=== PATIENT | male | born 1960 | race Caucasian/White ===

== ENCOUNTER 2018-01-31 00:28 | Inpatient (IN) | payer OTHER ==
[2018-01-31 01:34] LABS: BASO % 0.9 % (0-2.0); EOS % 0.7 % (0-4.5); HEMATOCRIT 39.2 % (35.4-49); HEMOGLOBIN 13.4 GM/dL (11.7-16.9); MCH 29.8 pg (25.7-33.7); MCHC 34.2 g/dl (32.0-35.9); MEAN CELL VOLUME 87.2 fl (80-96); MEAN PLT VOLUME 7.2 fl (7.5-11.1); MONO % 8.8 % (3.8-10.2); NEUT % 75.6 % (42.8-82.8); PLATELET COUNT 281 K/MM3 (134-434); RDW 15.3 % (11.9-15.9); WHITE BLOOD COUNT 9.2 K/mm3 (4.0-10.0)
[2018-01-31] MEDS ORDERED: SODIUM CHLORIDE 1,000 ML IV ONE ×2 (01:48→07:08)
--- NOTE | 2018-01-31 01:52 | PDOC ---
History of Present Illness - General History Source: Patient Exam Limitations: No Limitations - History of Present Illness Initial Comments: 01/31/18 03:59 The patient is a 57 year old male, with a significant past medical history of bipolar disorder, thyroid disease, hypercholesterolemia, manic depression, who presents to the emergency department via EMS, with mood swings. The patient reports his brother notified EMS as the patient was experiencing worsening agitation earlier today for the pst 2 days. The patient states he has recently been changing his medications in the past month. The patient states he has a maternal history of manic depression. The patient denies any suicidal or homicidal ideations. He denies any recent fevers, chills, headache or dizziness. He denies any recent nausea, vomit, diarrhea or constipation. He denies any recent chest pain or shortness of breath. He denies any recent dysuria, frequency, urgency or hematuria. Allergies: NKA <Ric Small - Last Filed: 01/31/18 05:09> <Angel Patino - Last Filed: 01/31/18 07:53> - General Chief Complaint: Altered Mental Status Stated Complaint: SYNCOPE Time Seen by Provider: 01/31/18 00:53 Past History <Ric Small - Last Filed: 01/31/18 05:09> - Suicide/Smoking/Psychosocial Hx Smoking History: Unknown if ever smoked Have you smoked in the past 12 months: No Information on smoking cessation initiated: No Hx Alcohol Use: No Drug/Substance Use Hx: No <Angel Patino - Last Filed: 01/31/18 07:53> - Past Medical History Allergies/Adverse Reactions: Allergies Allergy/AdvReac Type Severity Reaction Status Date / Time No Known Allergies Allergy Verified 01/31/18 02:38 Home Medications: Ambulatory Orders Unobtainable [Unobtainable] 01/31/18 Review of Systems - Review of Systems Able to Perform ROS?: No Comments:: 01/31/18 03:59 Lmited due to mental status <Ric Small - Last Filed: 01/31/18 05:09> *Physical Exam - Vital Signs Last Vital Signs Temp Pulse Resp BP Pulse Ox 98.3 F 113 H 20 158/85 99 01/31/18 00:30 01/31/18 00:30 01/31/18 00:30 01/31/18 00:30 01/31/18 00:30 - Physical Exam Comments: 01/31/18 03:59 GENERAL: The patient is awake, alert, oriented x 2, Nontoxic - in no acute distress. HEAD: Normocephalic, atraumatic. EYES: extraocular movements intact, sclera anicteric, conjunctiva clear. ENT: Normal voice, Moist mucous membranes. NECK: Normal range of motion, supple LUNGS: Breath sounds equal, clear to auscultation bilaterally. No wheezes, no rhonchi, no rales. HEART: Regular rate and rhythm, normal S1 and S2 without murmur, rub or gallop. ABDOMEN: Soft, nontender, normoactive bowel sounds. No guarding, no rebound. . No CVA tenderness EXTREMITIES: Normal range of motion, b/l LE edema with mild erythema b/l NEUROLOGICAL: No facial assymetry, moving all 4 extrmitieis psontaneously and symemtrically PSYCH:pressured speech. agitated SKIN: Warm, Dry, normal turgor, <Ric Small - Last Filed: 01/31/18 05:09> - Vital Signs Last Vital Signs Temp Pulse Resp BP Pulse Ox 98.3 F 113 H 20 158/85 99 01/31/18 00:30 01/31/18 00:30 01/31/18 00:30 01/31/18 00:30 01/31/18 00:30 <Angel Patino - Last Filed: 01/31/18 07:53> Heart Score/ECG Review - ECG Impressions Comment:: 01/31/18 01:51 Twelve-lead EKG was performed and reviewed by me. There is normal sinus rhythm with a rate of 113 ekleft axis devation rbbb no prior ekgs for comparison <Angel Patino - Last Filed: 01/31/18 07:53> ED Treatment Course - LABORATORY CBC & Chemistry Diagram: 01/31/18 01:26 01/31/18 01:26 - ADDITIONAL ORDERS Additional order review: Laboratory Results 01/31/18 01/31/18 01/31/18 02:50 02:50 01:26 Sodium Potassium Chloride Carbon Dioxide Anion Gap BUN Creatinine Creat Clearance w eGFR Random Glucose Calcium Total Bilirubin AST ALT Alkaline Phosphatase Total Protein Albumin Urine Color Ltyellow Urine Appearance Clear Urine pH 7.0 Ur Specific [place] 1.014 Urine Protein Negative Urine Glucose (UA) Negative Urine Ketones Negative Urine Blood Negative Urine Nitrite Negative Urine Bilirubin Negative Urine Urobilinogen Negative Ur Leukocyte Esterase Negative Salicylates <4.0 Opiates Screen Negative Methadone Screen Negative Acetaminophen <2.0 Barbiturate Screen Negative Phencyclidine Screen Negative Ur Amphetamines Screen Negative MDMA (Ecstasy) Screen Negative Benzodiazepines Screen Negative Cocaine Screen Negative U Marijuana (THC) Screen Negative 01/31/18 01:26 Sodium 139 Potassium 3.8 Chloride 101 Carbon Dioxide 26 Anion Gap 12 BUN 26 H Creatinine 1.0 Creat Clearance w eGFR > 60 Random Glucose 120 H Calcium 9.3 Total Bilirubin 0.3 AST 33 ALT 23 Alkaline Phosphatase 58 Total Protein 7.8 Albumin 4.0 Urine Color Urine Appearance Urine pH Ur Specific [place] Urine Protein Urine Glucose (UA) Urine Ketones Urine Blood Urine Nitrite Urine Bilirubin Urine Urobilinogen Ur Leukocyte Esterase Salicylates Opiates Screen Methadone Screen Acetaminophen Barbiturate Screen Phencyclidine Screen Ur Amphetamines Screen MDMA (Ecstasy) Screen Benzodiazepines Screen Cocaine Screen U Marijuana (THC) Screen 01/31/18 01:26 RBC 4.50 MCV 87.2 MCHC 34.2 RDW 15.3 MPV 7.2 L Neutrophils % 75.6 Lymphocytes % 14.0 Monocytes % 8.8 Eosinophils % 0.7 Basophils % 0.9 - RADIOLOGY Radiograph Interpretation: 01/31/18 05:09 EXAM: HEAD CT WITHOUT CONTRAST HISTORY: Seizure COMPARISON: None. FINDINGS: Brain parenchyma is normal in attenuation with no mass or hematoma. There is no midline shift. Kaufman and white matter differentiation is normal. Ventricles are normal. Sulci and extra-axial CSF spaces are normal. Intracranial vascular structures are normal in attenuation. There is no calvarial fracture. Paranasal sinuses are normally aerated. IMPRESSION: Normal head Reported by Niranjan Garza MD - Medications Given in the ED: ED Medications Discontinued Medications Generic Name Dose Route Start Last Admin Trade Name Freq PRN Reason Stop Dose Admin Sodium Chloride 1,000 mls @ 1,000 mls/hr 01/31/18 01:48 01/31/18 03:16 Normal Saline - IV 01/31/18 02:47 Not Given .Q1H ONE <Ric Small - Last Filed: 01/31/18 05:09> - LABORATORY CBC & Chemistry Diagram: 01/31/18 01:26 01/31/18 01:26 - ADDITIONAL ORDERS Additional order review: 01/31/18 01:26 RBC 4.50 MCV 87.2 MCHC 34.2 RDW 15.3 MPV 7.2 L Neutrophils % 75.6 Lymphocytes % 14.0 Monocytes % 8.8 Eosinophils % 0.7 Basophils % 0.9 - RADIOLOGY Radiology Studies Ordered: Category Date Time Status CHEST X-RAY PORTABLE* [RAD] Stat Radiology 01/31/18 00:54 Taken <Angel Patino - Last Filed: 01/31/18 07:53> Medical Decision Making - Medical Decision Making 01/31/18 01:50 pt sent in for evaluation by ?brother? for psych ?bipolar pt rambling, history limited and difficult to obtainhistory from patient brther had called ED and spoken to print shop chief clerk - states he will call us back will talk to brother to get more history will obtain tox workup for now pt noted tachy to 113, will hydrate 01/31/18 02:29 discussed with Israel Pasqualeada (brother ) - [phone] (h), (c, only call after 1pm) Per the brother the patient has been more agitated yesterday and much more today. there was an episode of shaking lasting approx 30 seconds, afterwards he couldnt speak and seemed to have slurred speech. this lasted for a few minutes before resolving. EMS was called. on arrival pt had no noted neuro deficits. suspect possible seizure > todds paralysis pt followed by the ACT Team at [facility]. Pt is on depakote, and was recently on abilify and was being tirated down, had an allergic reaction to cogentin pts PMHs: thyroid disease, cholesterol, ?cardiac disease currently beign worked up as outpatient. 01/31/18 05:29 pt had a apprxo 90 sec tonic clonic seizure followed by post ictal period stopped prior to any meds will give 2mg of ativan pts BGM 130 will admit/observe for further workup/psych consult 01/31/18 07:25 lactic acid eelvated to 8 sp seizure will give fluids - suspect LA due to true seizure 01/31/18 07:[address] mullins agree with admission to tele consults placed for dr. rahman and dr. rogers Case discussed in detail with admitting physician including history, physical exam and ancillary studies. Admitting physician has assumed care for the patient, will follow all pending diagnostics and will complete the evaluation and treatment. CRITICAL CARE DOCUMENTATION: I spent ~35 minutes of Critical Care time, excluding separately billable procedures, involving high complexity decision making to assess, manipulate and support vital system function(s) to treat single or multiple vital organ system failure and/or to prevent further life threatening deterioration of the patient' s condition. <Angel Patino - Last Filed: 01/31/18 07:53> *DC/Admit/Observation/Transfer - Attestations Scribe Attestion: 01/31/18 04:00 Documentation prepared by Ric Small, acting as medical donation professional for Angel Patino MD. <Ric Small - Last Filed: 01/31/18 05:09> - Discharge Dispostion Admit: Yes <Angel Patino - Last Filed: 01/31/18 07:53> Diagnosis at time of Disposition: Seizure, Manic behavior - Discharge Dispostion Condition at time of disposition: Stable
[2018-01-31 02:10] LABS: ANION GAP 12 (8-16); BILIRUBIN,TOTAL 0.3 mg/dL (0.2-1.0); BLOOD UREA NITROGEN 26 mg/dL (7-18); CALCIUM 9.3 mg/dL (8.5-10.1); CHLORIDE 101 mmol/L (98-107); CO2 26 mmol/L (21-32); GLUCOSE,RANDOM 120 mg/dL (74-106); POTASSIUM 3.8 mmol/L (3.5-5.1); SGOT/AST 33 U/L (15-37); SGPT/ALT 23 U/L (12-78); SODIUM 139 mmol/L (136-145); TOT PROT 7.8 g/dl (6.4-8.2)
[2018-01-31 02:11] LABS: ALK PHOS 58 U/L (45-117)
[2018-01-31 02:27] LABS: ACETAMINOPHEN <2.0 ug/mL; SALICYLATE <4.0 mg/dL
[2018-01-31 03:22] LABS: URINE APPEARANCE CLEAR; URINE BILIRUBIN NEGATIVE (<2.0 mg/dL); URINE BLOOD NEGATIVE (NEGATIVE); URINE COLOR LTYELLOW; URINE GLUCOSE (UA) NEGATIVE (NEGATIVE); URINE KETONE NEGATIVE (NEGATIVE); URINE LEUK ESTERASE NEGATIVE (NEGATIVE); URINE NITRITE NEGATIVE (NEGATIVE); URINE PROTEIN NEGATIVE (NEGATIVE); URINE UROBILINOGEN NEGATIVE mg/dL (0.2-1.0)
[2018-01-31 03:26] LABS: COCAINE, UR NEGATIVE ng/ml (CUTOFF=300); METHADONE, UR NEGATIVE ng/ml (CUTOFF=300); OPIATES, URI NEGATIVE ng/ml (CUTOFF=300); PHENCYCLIDINE,URINE NEGATIVE ng/ml (CUTOFF=25); URINE AMPHETAMINES NEGATIVE ng/ml (CUTOFF=500); URINE BARBITURATES NEGATIVE ng/ml (CUTOFF=200); URINE BENZODIAZEPINES NEGATIVE ng/ml (CUTOFF=200)
[2018-01-31] MEDS ORDERED: LORazepam 2 MG/ML SDV VIAL ONE (05:27)
[2018-01-31] MEDS ORDERED: HEMOQUE CONTROL SOLUTION ONE (05:35)
[2018-01-31] MEDS ORDERED: OXcarbazepine 300 MG TABLET (UD) PO SCH (10:00)
--- NOTE | 2018-01-31 10:59 | HP ---
CHIEF COMPLAINT: confusion and facial droop PCP: Dr. Moose Mora HISTORY OF PRESENT ILLNESS: 57 y/o M w/PMH of bipolar d/o, hypothyroidism, asthma, unknown cardiac issue presents to the ER after being witnessed by brother (Brooks) to have 1-2 min of shaking with confusion afterwards and facial drooping afterwards. Hx obtained from brother over phone as pt is currently tangentially talking during interview. According to brother over the last 2-3 days pt has been becoming more agitated and more manic. Last night pt was on phone and during call pt was extremely agitated and suddenly started shaking for 1-2 min. Pt had confusion afterwards and facial droop and slurred speech. Brother called EMS. Upon arrival to ER pt was noted not to have any focal neuro deficits. Pt has had this happen once approx 1-2 years ago while he was hospitalized at [facility]. In ER pt again had 90 sec of tonic clonic seizures (lactic acid noted to be 8.8 after seizure to confirm) and was given 2mg IV ativan with improvement in symptoms. According to brother pt is compliant with his meds and at baseline when his janae is controlled he is "able to function normally". According to brother pt had not been diagnosed with seizures in the past and depakote he takes is for mood stabilization. According to brother, pt was in the process of getting cardiac work up done but was unsure of reason or what had been done. Pt sees ACT team at [facility] for bipolar management. ER course was notable for: (1) EKG, Head CT, ativan 2mg IV (2) (3) Recent Travel: unable to assess due to tangential speech PAST MEDICAL HISTORY: bipolar d/o, hypothyroidism, asthma, unknown cardiac issue. PAST SURGICAL HISTORY: unable to assess due to tangential speech Social History: Smoking:unable to assess due to tangential speech Alcohol:unable to assess due to tangential speech Drugs: unable to assess due to tangential speech Family History:unable to assess due to tangential speech Allergies benztropine [From Cogentin] Allergy (Severe, Verified 01/31/18 09:41) anaphylaxis HOME MEDICATIONS: Home Medications Medication Instructions Recorded Unobtainable [Unobtainable] 01/31/18 REVIEW OF SYSTEMS unable to assess due to tangential speech PHYSICAL EXAMINATION Vital Signs - 24 hr 01/31/18 01/31/18 00:30 08:27 Temperature 98.3 F Pulse Rate 113 H Pulse Rate [ 98 H Left] Respiratory 20 18 Rate Blood Pressure 158/85 Blood Pressure 173/98 [Arm] O2 Sat by Pulse 99 99 Oximetry (%) GENERAL: Awake, alert, and oriented. Unable to asses time and place due to tangential speech. Pt not following instructions for physical exam. EYES: Pt not following instructions for physical exam. LUNGS: Unable to assess breath sounds as pt was talking during exam. HEART: Unable to assess heart sounds as pt was talking during exam. ABDOMEN: Soft, obese. LOWER EXTREMITIES: 2+ pulses, warm, well-perfused. 2+ pitting edema. NEUROLOGICAL: Normal gait. PSYCHIATRIC: Not cooperative with physical exam and tangentially speaking. SKIN: Warm, dry Laboratory Results - last 24 hr 01/31/18 01/31/18 01/31/18 01:26 01:26 01:26 WBC 9.2 RBC 4.50 Hgb 13.4 Hct 39.2 MCV 87.2 MCH 29.8 MCHC 34.2 RDW 15.3 Plt Count 281 MPV 7.2 L Neutrophils % 75.6 Lymphocytes % 14.0 Monocytes % 8.8 Eosinophils % 0.7 Basophils % 0.9 Sodium 139 Potassium 3.8 Chloride 101 Carbon Dioxide 26 Anion Gap 12 BUN 26 H Creatinine 1.0 Creat Clearance w eGFR > 60 POC Glucometer Random Glucose 120 H Lactic Acid Calcium 9.3 Total Bilirubin 0.3 AST 33 ALT 23 Alkaline Phosphatase 58 Ammonia Total Protein 7.8 Albumin 4.0 Urine Color Urine Appearance Urine pH Ur Specific [place] Urine Protein Urine Glucose (UA) Urine Ketones Urine Blood Urine Nitrite Urine Bilirubin Urine Urobilinogen Ur Leukocyte Esterase Salicylates <4.0 Opiates Screen Methadone Screen Acetaminophen <2.0 Barbiturate Screen Phencyclidine Screen Ur Amphetamines Screen MDMA (Ecstasy) Screen Benzodiazepines Screen Cocaine Screen U Marijuana (THC) Screen 01/31/18 01/31/18 01/31/18 02:50 02:50 03:40 WBC RBC Hgb Hct MCV MCH MCHC RDW Plt Count MPV Neutrophils % Lymphocytes % Monocytes % Eosinophils % Basophils % Sodium Potassium Chloride Carbon Dioxide Anion Gap BUN Creatinine Creat Clearance w eGFR POC Glucometer Random Glucose Lactic Acid 8.8 H* Calcium Total Bilirubin AST ALT Alkaline Phosphatase Ammonia Total Protein Albumin Urine Color Ltyellow Urine Appearance Clear Urine pH 7.0 Ur Specific [place] 1.014 Urine Protein Negative Urine Glucose (UA) Negative Urine Ketones Negative Urine Blood Negative Urine Nitrite Negative Urine Bilirubin Negative Urine Urobilinogen Negative Ur Leukocyte Esterase Negative Salicylates Opiates Screen Negative Methadone Screen Negative Acetaminophen Barbiturate Screen Negative Phencyclidine Screen Negative Ur Amphetamines Screen Negative MDMA (Ecstasy) Screen Negative Benzodiazepines Screen Negative Cocaine Screen Negative U Marijuana (THC) Screen Negative 01/31/18 01/31/18 01/31/18 05:41 09:15 09:53 WBC RBC Hgb Hct MCV MCH MCHC RDW Plt Count MPV Neutrophils % Lymphocytes % Monocytes % Eosinophils % Basophils % Sodium Potassium Chloride Carbon Dioxide Anion Gap BUN Creatinine Creat Clearance w eGFR POC Glucometer [phone] Random Glucose Lactic Acid 1.0 Calcium Total Bilirubin AST ALT Alkaline Phosphatase Ammonia 20.34 Total Protein Albumin Urine Color Urine Appearance Urine pH Ur Specific [place] Urine Protein Urine Glucose (UA) Urine Ketones Urine Blood Urine Nitrite Urine Bilirubin Urine Urobilinogen Ur Leukocyte Esterase Salicylates Opiates Screen Methadone Screen Acetaminophen Barbiturate Screen Phencyclidine Screen Ur Amphetamines Screen MDMA (Ecstasy) Screen Benzodiazepines Screen Cocaine Screen U Marijuana (THC) Screen Imaging: CXR: No acute pathology Head CT: no acute pathology EKG: SR @ 113, LAD, RBBB -no previous EKG here ASSESSMENT/PLAN: 57 y/o M w/PMH of bipolar d/o, hypothyroidism, asthma, unknown cardiac issue admitted for new onset seizures. -Seizure d/o -check ammonia levels -low depakote levels -spoke with Dr. Cordova and will load with IV valproic acid 1g once and c/w depakote 500 qid -LA 8.8 after seizure in ER -will put on NS @ 100 ml/hr -ativan 2 mg IV q6h prn -Neuro consult -EEG -seizure precautions -neuro checks -elevated TSH, f/u free T4 and total T3 in AM -Bipolar d/o w/active janae -c/w depakote po 500 mg qid -psych consult -1:1 observation -pt also on aricept 10 mg qd, will restart -Hypothyroidism -check TSH -c/w synthroid -LE edema -hold lasix -Asthma -not currently in exacerbation -duo-nebs q4h prn -DVT ppx -heparin 5000 units sq q8h -FEN -NS @ 100 ml/hr -Monitor electrolytes -Sodium controlled diet -Dispo: Tele Visit type - Emergency Visit Emergency Visit: Yes ED Registration Date: 01/31/18 Care time: The patient presented to the Emergency Department on the above date and was hospitalized for further evaluation of their emergent condition. - New Patient This patient is new to me today: Yes Date on this admission: 01/31/18 - Critical Care Critical Care patient: No Hospitalist Screening - Colonoscopy Questionnaire Colonoscopy Questionnaire: Colonoscopy Questionnaire - Patient: 50 - 75 years old and never had a screening colonoscopy: Unknown History of colon or rectal polyps, or CA: Unknown History of IBD, Crohn's disease or UC: Unknown History of abdominal radiation therapy as a child: Unknown - Relative: 1 with colon or rectal CA, or polyps at age 60 or younger: Unknown Colon or rectal CA diagnosed at age 45 or younger: Unknown Multiple relatives with colon or rectal CA: Unknown - Outcome: Screening Result: Negative Screen
[2018-01-31] MEDS ORDERED: ALBUTEROL SO4 2.5/IPRATROPIUM 0.5 INH SOL 3 ML VIAL.NEB. NEB PRN (11:13)
[2018-01-31] MEDS ORDERED: FUROSEMIDE 40 MG TABLET (FP) PO SCH (11:15)
[2018-01-31] MEDS ORDERED: FUROSEMIDE 40 MG/4 ML INJECTABLE VIAL ONE (12:11)
--- NOTE | 2018-01-31 13:12 | PN ---
Teaching Attending Note Name of Resident: Larry Lynch ATTENDING PHYSICIAN STATEMENT I saw and evaluated the patient. I reviewed the resident's note and discussed the case with the resident. I agree with the resident's findings and plan as documented with exceptions mentioned below. SUBJECTIVE: 57 yom with pMHx of bipolar disorder, Hypothyroidism, Asthma, ?Cardiac history vs on lasix for LE edema, with reportedly manic episode over last 2-3 days. Patient was noted with witnessed GTC seizure followed by transient right facial droop/confusion, brought to ED, when was asymptomatic. Had another episode of GTC in the ED followed by confusion that resolved with ativan in the ED. Currently patient tangential in his conversation and unable to provide clear history or ROS. Denies any pain or complaints. 12 point ROS limited given above. Reported seizure episode 1-2 years ago none since. OBJECTIVE: Vital Signs Period Temp Pulse Resp BP Sys/Machado Pulse Ox Last 24 Hr 98.3 F-98.3 F 98-113 14-20 143-173/85-106 98-99 Intake & Output 01/28/18 01/29/18 01/30/18 01/31/18 23:59 23:59 23:59 23:59 Weight 220 lb GENERAL: Awake, alert, and fully oriented, in no acute distress, ambulating, tangential HEAD: Normal with no signs of trauma. EYES: Pupils equal, round and reactive to light, extraocular movements intact, sclera anicteric, conjunctiva clear. No lid lag. EARS, NOSE, THROAT: Ears normal, nares patent, oropharynx clear without exudates. Moist mucous membranes. NECK: Normal range of motion, supple LUNGS: Breath sounds equal, clear to auscultation bilaterally. No wheezes, and no crackles. No accessory muscle use. HEART: Regular rate and rhythm, normal S1 and S2 ABDOMEN: Soft, nontender, not distended, normoactive bowel sounds, no guarding, no rebound, no masses. MUSCULOSKELETAL: Normal range of motion at all joints. No bony deformities or tenderness. No CVA tenderness. UPPER EXTREMITIES: 2+ pulses, warm, well-perfused. No cyanosis. No clubbing. No peripheral edema. LOWER EXTREMITIES: 2+ pulses, warm, well-perfused. No calf tenderness. No peripheral edema. NEUROLOGICAL: Cranial nerves II-XIIgrossly intact, facial symmetry, tongue midline, limited co-operation as talking continuously. PSYCHIATRIC: tangential, continuous conversation with no clear relevance SKIN: Warm, dry, normal turgor, no rashes or lesions noted, normal capillary refill. Home Medication List Medication Instructions Recorded Confirmed Type Albuterol Sulfate [Proair Hfa] 01/31/18 History Divalproex *ER* [Depakote *ER* -] 500 mg PO QID 01/31/18 01/31/18 History Donepezil HCl [Aricept] 10 mg PO 01/31/18 History Furosemide [Lasix -] 40 mg PO DAILY 01/31/18 01/31/18 History Levothyroxine [Synthroid -] 100 mcg PO DAILY 01/31/18 01/31/18 History Active Medications Generic Name Dose Route Start Last Admin Trade Name Freq PRN Reason Stop Dose Admin Albuterol/Ipratropium 1 amp 01/31/18 11:13 Duoneb - NEB Q6H PRN SHORTNESS OF BREATH Divalproex Sodium 500 mg 01/31/18 14:00 Depakote *Er* - PO QID SHELL Donepezil HCl 10 mg 02/01/18 10:00 Aricept - PO DAILY SHELL Furosemide 40 mg 01/31/18 11:15 01/31/18 12:13 Lasix - PO 40 mg DAILY SHELL Administration Heparin Sodium (Porcine) 5,000 unit 01/31/18 18:00 Heparin - SQ Q8H-IV SHELL Sodium Chloride 1,000 mls @ 100 mls/hr 01/31/18 13:15 Normal Saline - IV ASDIR SHELL Levothyroxine Sodium 100 mcg 02/01/18 07:00 Synthroid - PO DAILY@0700 SHELL Lorazepam 2 mg 01/31/18 13:07 Ativan Injection - IVPUSH Q6H PRN AGITATION Oxcarbazepine 300 mg 01/31/18 10:00 01/31/18 12:22 Trileptal - PO 300 mg BID SHELL Administration Laboratory Results - last 24 hr 01/31/18 01/31/18 01/31/18 01:26 01:26 01:26 WBC 9.2 RBC 4.50 Hgb 13.4 Hct 39.2 MCV 87.2 MCH 29.8 MCHC 34.2 RDW 15.3 Plt Count 281 MPV 7.2 L Neutrophils % 75.6 Lymphocytes % 14.0 Monocytes % 8.8 Eosinophils % 0.7 Basophils % 0.9 Sodium 139 Potassium 3.8 Chloride 101 Carbon Dioxide 26 Anion Gap 12 BUN 26 H Creatinine 1.0 Creat Clearance w eGFR > 60 POC Glucometer Random Glucose 120 H Lactic Acid Calcium 9.3 Total Bilirubin 0.3 AST 33 ALT 23 Alkaline Phosphatase 58 Ammonia Total Protein 7.8 Albumin 4.0 TSH 5.40 H Urine Color Urine Appearance Urine pH Ur Specific [place] Urine Protein Urine Glucose (UA) Urine Ketones Urine Blood Urine Nitrite Urine Bilirubin Urine Urobilinogen Ur Leukocyte Esterase Salicylates <4.0 Opiates Screen Methadone Screen Acetaminophen <2.0 Barbiturate Screen Valproic Acid Phencyclidine Screen Ur Amphetamines Screen MDMA (Ecstasy) Screen Benzodiazepines Screen Cocaine Screen U Marijuana (THC) Screen 01/31/18 01/31/18 01/31/18 02:50 02:50 03:40 WBC RBC Hgb Hct MCV MCH MCHC RDW Plt Count MPV Neutrophils % Lymphocytes % Monocytes % Eosinophils % Basophils % Sodium Potassium Chloride Carbon Dioxide Anion Gap BUN Creatinine Creat Clearance w eGFR POC Glucometer Random Glucose Lactic Acid 8.8 H* Calcium Total Bilirubin AST ALT Alkaline Phosphatase Ammonia Total Protein Albumin TSH Urine Color Ltyellow Urine Appearance Clear Urine pH 7.0 Ur Specific [place] 1.014 Urine Protein Negative Urine Glucose (UA) Negative Urine Ketones Negative Urine Blood Negative Urine Nitrite Negative Urine Bilirubin Negative Urine Urobilinogen Negative Ur Leukocyte Esterase Negative Salicylates Opiates Screen Negative Methadone Screen Negative Acetaminophen Barbiturate Screen Negative Valproic Acid Phencyclidine Screen Negative Ur Amphetamines Screen Negative MDMA (Ecstasy) Screen Negative Benzodiazepines Screen Negative Cocaine Screen Negative U Marijuana (THC) Screen Negative 01/31/18 01/31/18 01/31/18 05:41 09:00 09:15 WBC RBC Hgb Hct MCV MCH MCHC RDW Plt Count MPV Neutrophils % Lymphocytes % Monocytes % Eosinophils % Basophils % Sodium Potassium Chloride Carbon Dioxide Anion Gap BUN Creatinine Creat Clearance w eGFR POC Glucometer [phone] Random Glucose Lactic Acid 1.0 Calcium Total Bilirubin AST ALT Alkaline Phosphatase Ammonia Total Protein Albumin TSH Cancelled Urine Color Urine Appearance Urine pH Ur Specific [place] Urine Protein Urine Glucose (UA) Urine Ketones Urine Blood Urine Nitrite Urine Bilirubin Urine Urobilinogen Ur Leukocyte Esterase Salicylates Opiates Screen Methadone Screen Acetaminophen Barbiturate Screen Valproic Acid Phencyclidine Screen Ur Amphetamines Screen MDMA (Ecstasy) Screen Benzodiazepines Screen Cocaine Screen U Marijuana (THC) Screen 01/31/18 01/31/18 09:53 09:53 WBC RBC Hgb Hct MCV MCH MCHC RDW Plt Count MPV Neutrophils % Lymphocytes % Monocytes % Eosinophils % Basophils % Sodium Potassium Chloride Carbon Dioxide Anion Gap BUN Creatinine Creat Clearance w eGFR POC Glucometer Random Glucose Lactic Acid Calcium Total Bilirubin AST ALT Alkaline Phosphatase Ammonia 20.34 Total Protein Albumin TSH Urine Color Urine Appearance Urine pH Ur Specific [place] Urine Protein Urine Glucose (UA) Urine Ketones Urine Blood Urine Nitrite Urine Bilirubin Urine Urobilinogen Ur Leukocyte Esterase Salicylates Opiates Screen Methadone Screen Acetaminophen Barbiturate Screen Valproic Acid 20.983 L Phencyclidine Screen Ur Amphetamines Screen MDMA (Ecstasy) Screen Benzodiazepines Screen Cocaine Screen U Marijuana (THC) Screen CT brain prelim results neg for acute concerns. EKG sinus tach 113, LAD, RBBB (no prior for comparison) ASSESSMENT AND PLAN: 57 yom with PMHx of bipolar disorder, hypothyroidism,asthma, ?Cardiac history vs chronic LE edema, admitted with acute janae and likely GTC x 2 -Acute janae, bipolar disorder -Likely witnessed GTC x 2 -Lactic acidosis from seizure, resolved -Hypothyroidism -Asthma -Chronic LE edema, vs ?Cardiac disease Plan: Neurology input appreciated, valproate loading,resume home dose, level subtherapeutic. Start seroquel. Seizure precautions, ativan prn 1:1 constant observation. Psych consult. Check free t4 and total T3 hold lasix, iVF x 24 hours, reassess tomorrow Elevated TSH, low depakote levels raise suspicion for non compliance, ?from acute janae. COntinue current dose of levothyroxine for now. DVTPPX low risk total admit time spent 55 min.
--- NOTE | 2018-01-31 13:49 | CON.NEURO ---
Consult Consult Specialty:: NEUROLOGY-VERONIKA [facility] - History of Present Illness Chief Complaint: Seizure History of Present Illness: 57 y/o M w/PMH of bipolar d/o, hypothyroidism, asthma, unknown cardiac issue presents to the ER after being witnessed by brother (Brooks) to have 1-2 min of shaking with confusion afterwards and facial drooping afterwards. Hx obtained from brother over phone as pt is currently tangentially talking during interview. According to brother over the last 2-3 days pt has been becoming more agitated and more manic. Last night pt was on phone and during call pt was extremely agitated and suddenly started shaking for 1-2 min. Pt had confusion afterwards and facial droop and slurred speech. Brother called EMS. Upon arrival to ER pt was noted not to have any focal neuro deficits. Pt has had this happen once approx 1-2 years ago while he was hospitalized at [facility]. In ER pt again had 90 sec of tonic clonic seizures (lactic acid noted to be 8.8 after seizure to confirm) and was given 2mg IV ativan with improvement in symptoms. According to brother pt is compliant with his meds and at baseline when his janae is controlled he is "able to function normally". According to brother pt had not been diagnosed with seizures in the past and depakote he takes is for mood stabilization. According to brother, pt was in the process of getting cardiac work up done but was unsure of reason or what had been done. Pt sees ACT team at [facility] for bipolar management. -Pt. reports he has been compliant with Depakote, that his first seizure was in the and last one was 2 years ago, event he was admitted with last night he reports began with difficuty speaking followed by LOC(not clear for how long , in ER had another event.) ER course was notable for: (1) EKG, Head CT, ativan 2mg IV (2) (3) Recent Travel: unable to assess due to tangential speech PAST MEDICAL HISTORY: bipolar d/o, hypothyroidism, asthma, unknown cardiac issue. - Alcohol/Substance Use Hx Alcohol Use: No - Smoking History Smoking history: Unknown if ever smoked Have you smoked in the past 12 months: No Home Medications - Allergies Allergies/Adverse Reactions: Allergies Allergy/AdvReac Type Severity Reaction Status Date / Time benztropine [From Cogentin] Allergy Severe Verified 01/31/18 09:41 - Home Medications Home Medications: Ambulatory Orders Albuterol Sulfate [Proair Hfa] 01/31/18 Divalproex *ER* [Depakote *ER* -] 500 mg PO QID 01/31/18 Donepezil HCl [Aricept] 10 mg PO 01/31/18 Furosemide [Lasix -] 40 mg PO DAILY 01/31/18 Levothyroxine [Synthroid -] 100 mcg PO DAILY 01/31/18 Physical Exam-Neuro Vital Signs: Vital Signs Temperature 98.3 F 01/31/18 12:55 Pulse Rate 107 H 01/31/18 12:55 Respiratory Rate 14 01/31/18 12:55 Blood Pressure 143/106 01/31/18 12:55 O2 Sat by Pulse Oximetry (%) 98 01/31/18 12:55 Labs: CBC, BMP 01/31/18 01:26 01/31/18 01:26 - Neuro Exam Level Of Consciousness: Yes: Alert, Oriented to Person, Oriented to Place Dominant Hand: Right Mini Mental Exam: + logorrhea+fight of ideas, inattentveness/unable to comply with formal ms exam due to maniac symptoms. Cranial Nerves II-XII Intact: No (slightly diminished right nlf(old)) DTR's: 2+ Left Bicep, 2+ Right Bicep, 2+ Left Tricep, 2+ Right Tricep, 2+ Left Brachioradialis, 4+ Left Achilles (ankles not tested due to LE tenderness) Babinski: Absent Motor Strength: 5/5: Left Arm, Right Arm, Left Leg, Right Leg Gait: Deferred (Bilat LE edema and redness?? cellulitis) Imaging - Results Cat Scan: Image Reviewed (Appears without acute abn, bifrontal atrophy) Assessment/Plan Pt. with bipolar d/o, now with what apears to be sz.x 2, per description appear to be partial sz. with secondary gen. He is maniac upon examination with an old right diminished NLF. VPA level 20.93, he insists he has been compliant with Depakote for janae. On no other antimaiac agent, janae and seizures lkely due to low VPA levels. Suggest: 1) LFTs, NH3 level, EEG when possible. MRI brain?? mesial temporal atrophy(will give pointers to etiology of seizures). 2) Depacon 1000mg i/v x1 now to treat both janae and prophylax against sz. 3) Cont Depakote 500mg q6hrs 4) Seroquel 100mg bid(first dose now)-to treat acute janae. Thank you, Remedios Cordova MD
[2018-01-31] MEDS ORDERED: DIVALPROEX NA *ER* EXTEND REL 250 MG TABLET.SA PO SCH (14:00)
[2018-01-31 14:14] VITALS: BMI 35.1
[2018-01-31] MEDS ORDERED: VALPROATE SODIUM 500 MG/5 ML VIAL IVPB ONE (14:30)
[2018-01-31] MEDS: SODIUM CHLORIDE 1,000 ML IV SCH (15:58)
[2018-01-31] MEDS: DIVALPROEX NA *ER* EXTEND REL 500 MG TABLET.SA (FP) PO SCH ×2 (17:36→21:47)
--- NOTE | 2018-01-31 17:51 | EKG ---
Test Reason : Blood Pressure : / mmHG Vent. Rate : 113 BPM Atrial Rate : 113 BPM P-R Int : 154 ms QRS Dur : 132 ms QT Int : 356 ms P-R-T Axes : 063 -32 048 degrees QTc Int : 488 ms SINUS TACHYCARDIA WITH FUSION COMPLEXES LEFT AXIS DEVIATION RIGHT BUNDLE BRANCH BLOCK ABNORMAL ECG NO PREVIOUS ECGS AVAILABLE Confirmed by MD EDMAR, LESLIE ([id number]) on 01/31/2018 5:50:58 PM Referred By: Confirmed By:LESLIE HYATT MD
[2018-01-31] MEDS: QUEtiapine FUMARATE 100 MG TABLET (FP) PO SCH (21:47)
[2018-01-31] MEDS: HEPARIN NA (PORCINE) 5,000 UNITS/ML 1ML VIAL SQ SCH (21:47)
[2018-02-01] MEDS: DIVALPROEX NA *ER* EXTEND REL 500 MG TABLET.SA (FP) PO SCH ×6 (00:38→23:47)
[2018-02-01] MEDS: SODIUM CHLORIDE 1,000 ML IV SCH ×2 (03:05→22:03)
[2018-02-01] MEDS: HEPARIN NA (PORCINE) 5,000 UNITS/ML 1ML VIAL SQ SCH ×3 (03:05→17:25)
[2018-02-01] MEDS: LEVOTHYROXINE NA 100 MCG TABLET (FP) PO SCH (06:17)
[2018-02-01] MEDS ORDERED: ACETAMINOPHEN 325 MG TABLET (FP) PO PRN (07:38)
[2018-02-01 08:47] LABS: HEMATOCRIT 36.8 % (35.4-49); HEMOGLOBIN 12.2 GM/dL (11.7-16.9); MCHC 33.2 g/dl (32.0-35.9); MEAN CELL VOLUME 87.2 fl (80-96); PLATELET COUNT 215 K/MM3 (134-434); RBC 4.22 M/mm3 (4.00-5.60); RDW 15.1 % (11.9-15.9); WHITE BLOOD COUNT 5.8 K/mm3 (4.0-10.0)
[2018-02-01 09:07] LABS: CHLORIDE 110 mmol/L (98-107); POTASSIUM 3.8 mmol/L (3.5-5.1); SODIUM 142 mmol/L (136-145)
[2018-02-01] MEDS ORDERED: PT OWN MED DRAWER 7, Y5N ONE (09:13)
[2018-02-01] MEDS: QUEtiapine FUMARATE 100 MG TABLET (FP) PO SCH ×3 (09:20→23:51)
[2018-02-01 09:26] LABS: ALBUMIN 3.1 g/dl (3.4-5.0); ALK PHOS 42 U/L (45-117); ANION GAP 8 (8-16); BILIRUBIN,TOTAL 0.3 mg/dL (0.2-1.0); BLOOD UREA NITROGEN 16 mg/dL (7-18); CO2 24 mmol/L (21-32); CREATININE 0.7 mg/dL (0.7-1.3); GLUCOSE,RANDOM 84 mg/dL (74-106); MAGNESIUM 2.6 mg/dL (1.8-2.4); SGOT/AST 22 U/L (15-37); SGPT/ALT 19 U/L (12-78); TOT PROT 6.1 g/dl (6.4-8.2)
[2018-02-01] MEDS ORDERED: DONEPEZIL HCL 10 MG TABLET (FP) PO SCH (10:00)
--- NOTE | 2018-02-01 11:36 | PN ---
Teaching Attending Note Name of Resident: Ana Maria Fitzgerald SUBJECTIVE: patient seen and examined. still with tangential conversation, asking about his meds, but a little directable today, no complaints. OBJECTIVE: Vital Signs Period Temp Pulse Resp BP Sys/Machado Pulse Ox Last 24 Hr 97.9 F-98.3 F 79-107 14-18 127-153/73-106 98-98 Intake & Output 01/29/18 01/30/18 01/31/18 02/01/18 23:59 23:59 23:59 23:59 Intake Total 300 700 Balance 300 700 Weight 231 lb General: lying in bed in no acute distress Neuro Aa, unable to assess orientation as tangential conversation, facial symmetry, moves all extremities freely, grossly non focal exam Abdomen soft, NT, ND Extremities chronic edema with minimal erythema/petechial changes psych: still with tangential conversations. Home Medication List Medication Instructions Recorded Confirmed Type Albuterol Sulfate [Proair Hfa] 01/31/18 History Divalproex *ER* [Depakote *ER* -] 500 mg PO QID 01/31/18 01/31/18 History Donepezil HCl [Aricept] 10 mg PO 01/31/18 History Furosemide [Lasix -] 40 mg PO DAILY 01/31/18 01/31/18 History Levothyroxine [Synthroid -] 100 mcg PO DAILY 01/31/18 01/31/18 History Active Medications Generic Name Dose Route Start Last Admin Trade Name Freq PRN Reason Stop Dose Admin Acetaminophen 650 mg 02/01/18 07:38 02/01/18 08:46 Tylenol - PO 650 mg Q6H PRN Administration HEADACHE Albuterol/Ipratropium 1 amp 01/31/18 11:13 Duoneb - NEB Q6H PRN SHORTNESS OF BREATH Divalproex Sodium 500 mg 01/31/18 14:00 02/01/18 09:20 Depakote *Er* - PO 500 mg QID SHELL Administration Donepezil HCl 10 mg 02/01/18 10:00 02/01/18 09:21 Aricept - PO 10 mg DAILY SHELL Administration Heparin Sodium (Porcine) 5,000 unit 01/31/18 18:00 02/01/18 09:21 Heparin - SQ 5,000 unit Q8H-IV SHELL Administration Sodium Chloride 1,000 mls @ 100 mls/hr 01/31/18 13:15 02/01/18 03:05 Normal Saline - IV 100 mls/hr ASDIR SHELL Administration Levothyroxine Sodium 100 mcg 02/01/18 07:00 02/01/18 06:17 Synthroid - PO 100 mcg DAILY@0700 SHELL Administration Lorazepam 2 mg 01/31/18 13:07 02/01/18 10:15 Ativan Injection - IVPUSH 2 mg Q6H PRN Administration AGITATION Quetiapine Fumarate 100 mg 01/31/18 22:00 02/01/18 09:29 Seroquel - PO Not Given BID [facility] Laboratory Results - last 24 hr 02/01/18 02/01/18 02/01/18 07:00 07:00 07:00 WBC 5.8 D RBC 4.22 Hgb 12.2 Hct 36.8 MCV 87.2 MCH 29.0 MCHC 33.2 RDW 15.1 Plt Count 215 D MPV 7.0 L Sodium 142 Potassium 3.8 Chloride 110 H Carbon Dioxide 24 Anion Gap 8 BUN 16 D Creatinine 0.7 D Creat Clearance w eGFR > 60 Random Glucose 84 D Calcium 8.0 L Magnesium 2.6 H Total Bilirubin 0.3 AST 22 D ALT 19 Alkaline Phosphatase 42 L D Total Protein 6.1 L D Albumin 3.1 L D Free T4 0.96 Cancelled ASSESSMENT AND PLAN: 57 yom with PMHx of bipolar disorder, hypothyroidism,asthma, ?Cardiac history vs chronic LE edema, admitted with acute janae and likely GTC x 2 -Acute janae, bipolar disorder -Likely witnessed GTC x 2 -Lactic acidosis from seizure, resolved -Hypothyroidism -Asthma -Chronic LE edema, vs ?Cardiac disease Plan: Neurology input appreciated, valproete levels low, s/p loading. Continue home dose. EEG. MRI brain if patient able to co-operate (asking for MRI of 'his whole body' ). Premedicate with Ativan, neuro checks. Continue seroquel. Seizure precautions, ativan prn 1:1 constant observation. Psych consult. Follow up thyroid studies. hold lasix d/c IVF. Elevated TSH, low depakote levels raise suspicion for non compliance, ?from acute janae. COntinue current dose of levothyroxine for now. DVTPPX low risk dispo anticipate d/c to inpatient psych once neurological status stable and w/u non concerning.
[2018-02-01] MEDS ORDERED: LORazepam 2 MG/ML SDV VIAL IVPUSH PRN (17:40)
[2018-02-02] MEDS: QUEtiapine FUMARATE 100 MG TABLET (FP) PO SCH ×4 (00:04→21:57)
[2018-02-02] MEDS: HEPARIN NA (PORCINE) 5,000 UNITS/ML 1ML VIAL SQ SCH ×3 (01:54→18:46)
[2018-02-02] MEDS: LEVOTHYROXINE NA 100 MCG TABLET (FP) PO SCH (06:31)
--- NOTE | 2018-02-02 07:39 | PN ---
Physical Exam: SUBJECTIVE: Patient seen and examined. tangential thought process, grandiose content; no specific medical complaints OBJECTIVE: Vital Signs Period Temp Pulse Resp BP Sys/Machado Pulse Ox Last 24 Hr 97.7 F-98.5 F 86-99 18-20 119-144/75-90 98-98 GENERAL: aaox3, sitting wheel-chair, nad HEENT: sclera anicteric, conjunctiva clear, MMM LUNGS: CTAB HEART: rrr, no m/r/g ABDOMEN: obese, soft, NTND, +bowel sounds LOWER EXTREMITIES: 2+pitting edema, wwp NEUROLOGICAL: Cranial nerves II through XII grossly intact, but not formally tested. PSYCH: disheveled appearance, hyperactive psychomotor activity, tangential speech, grandiose content, no SI or HI CBC, BMP 02/01/18 07:00 02/01/18 07:00 Hepatic Panel Total Bilirubin 0.3 mg/dL (0.2-1.0) 02/01/18 07:00 AST 22 U/L (15-37) D 02/01/18 07:00 ALT 19 U/L (12-78) 02/01/18 07:00 Alkaline Phosphatase 42 U/L (45-117) L D 02/01/18 07:00 Albumin 3.1 g/dl (3.4-5.0) L D 02/01/18 07:00 ASSESSMENT/PLAN: 57yo man with PMH of bipolar disorder, hypothyroidism, asthma, unknown cardiac issue admitted for new onset seizures. #seizure disorder, no further seizures noted since ED, -Neurology consulted, EEG attempted today, but pt uncooperative; case d/w Dr. Cordova no further in-patient w/u -C/w Depakote ER 2000mg HS -Ativan 2mg IV q6H -seizure precautions, neuro checks #acute janae, pt h/o bipolar disorder -Pysch consult -c/w 1:1 -Increased seroquel 150mg BID #hypothyroidism, TSH elevated, FT4 wnl -f/u T3 pending -c/w home 125mg synthroid -f/u TFTs in 4 weeks as OP #LE edema - lasix 20mg PO daily #Asthma -not currently in exacerbation -duo-nebs q4h prn #DVT PPX - Hep SQ TID #FEN: PO intake / lytes wnl / Na controlled diet #DISPO: m/s, can d/c to in-patient psych FULL code Visit type - Emergency Visit Emergency Visit: No - New Patient This patient is new to me today: Yes Date on this admission: 02/02/18 - Critical Care Critical Care patient: No
--- NOTE | 2018-02-02 08:03 | CON.PSY ---
Psychiatry Consult Chief Complaint: 57 yr old male with an extensive history of Bipolar Disorder and other chronic medical conditiond admitted with Seizures. patient had been on many psych meds, He is a very poor historian and has some flight of ideas. Symptoms: reports: Irritability, Grandiosity, Racing Thoughts - Previous Psychiatric Treatment Outpatient: Less than 6 mos ago Inpatient: One prior admission - Previous Substance Abuse Treatment Outpatient: None Inpatient: None - Reason for Previous Treatment Reason for Previous Treatment: Biploar Illness - Current Medications Current Medications: Active Medications Acetaminophen (Tylenol -) 650 mg PO Q6H PRN PRN Reason: HEADACHE Last Admin: 02/01/18 08:46 Dose: 650 mg Albuterol/Ipratropium (Duoneb -) 1 amp NEB Q6H PRN PRN Reason: SHORTNESS OF BREATH Divalproex Sodium (Depakote *Er* -) 2,000 mg PO HS [facility] Last Admin: 02/01/18 23:47 Dose: 2,000 mg Heparin Sodium (Porcine) (Heparin -) 5,000 unit SQ Q8H-IV [facility] Last Admin: 02/02/18 01:54 Dose: 5,000 unit Levothyroxine Sodium (Synthroid -) 100 mcg PO DAILY@0700 [facility] Last Admin: 02/02/18 06:31 Dose: 100 mcg Lorazepam (Ativan Injection -) 2 mg IVPUSH Q6H PRN PRN Reason: AGITATION Quetiapine Fumarate (Seroquel -) 100 mg PO BID [facility] Last Admin: 02/02/18 00:04 Dose: 100 mg - Allergies Allergies: Allergies Allergy/AdvReac Type Severity Reaction Status Date / Time benztropine [From Cogentin] Allergy Severe Verified 01/31/18 09:41 - Current Living Status Usual Living Arrangement: With Significant Other - Current Mental Status Evaluation Appearance: Disheveled Attitude: Cooperative - Affect Affect: Expansive Appropriateness: Not Appropriate - Mood Mood: Euphoric - Speech/Language Expressive: Coherent - Psychomotor Activity Psychomotor Activity: Hyperactive - Thought Process Thought Process: Intact - Thought Content Hallucinations: Absent Type: Grandiose - Self Perception Self Perception: No Impairment - Cognition Attention: Alert Orientation: Time Memory, Immediate Recall: Intact Memory, Short Term: 2/3 Memory, Remote with Promptin/3 - Concentration Serial Sevens Intact: No Simple Calculations Intact: No - Abstraction Proverb Interpretation: Impaired Judgement: Moderately Impaired - Insight Insight: Impaired - Impulse Control Impulse Control: Moderately Impaired - Suicidal Ideation Suicidal Ideation: No - Homicidal Ideation Homicidal Ideation: No Assessment/Plan 1) continue with 1:1 2) may need In patient psych admission after medical stabilization. 3 will follow .
--- NOTE | 2018-02-02 08:45 | PN ---
Teaching Attending Note Name of Resident: Arely Samuels ATTENDING PHYSICIAN STATEMENT I saw and evaluated the patient. I reviewed the resident's note and discussed the case with the resident. I agree with the resident's findings and plan as documented with exceptions mentioned below. SUBJECTIVE: Patient seen and examined. tangential conversation, though with occasional pertinent information. OBJECTIVE: Vital Signs Period Temp Pulse Resp BP Sys/Machado Pulse Ox Last 24 Hr 97.7 F-98.5 F 86-99 18-20 119-144/75-90 98-98 Intake & Output 01/30/18 01/31/18 02/01/18 02/02/18 23:59 23:59 23:59 23:59 Intake Total 300 1400 Balance 300 1400 Weight 231 lb General: sitting in wheelchair in no acute distress Extremities: unchanged edema Home Medication List Medication Instructions Recorded Confirmed Type Albuterol Sulfate [Proair Hfa] 01/31/18 History Divalproex *ER* [Depakote *ER* -] 500 mg PO QID 01/31/18 01/31/18 History Donepezil HCl [Aricept] 10 mg PO 01/31/18 History Furosemide [Lasix -] 40 mg PO DAILY 01/31/18 01/31/18 History Levothyroxine [Synthroid -] 100 mcg PO DAILY 01/31/18 01/31/18 History Active Medications Generic Name Dose Route Start Last Admin Trade Name Freq PRN Reason Stop Dose Admin Acetaminophen 650 mg 02/01/18 07:38 02/01/18 08:46 Tylenol - PO 650 mg Q6H PRN Administration HEADACHE Albuterol/Ipratropium 1 amp 01/31/18 11:13 Duoneb - NEB Q6H PRN SHORTNESS OF BREATH Divalproex Sodium 2,000 mg 02/01/18 22:00 02/01/18 23:47 Depakote *Er* - PO 2,000 mg HS SHELL Administration Heparin Sodium (Porcine) 5,000 unit 01/31/18 18:00 02/02/18 01:54 Heparin - SQ 5,000 unit Q8H-IV SHELL Administration Levothyroxine Sodium 100 mcg 02/01/18 07:00 02/02/18 06:31 Synthroid - PO 100 mcg DAILY@0700 SHELL Administration Lorazepam 2 mg 02/01/18 17:40 Ativan Injection - IVPUSH Q6H PRN AGITATION Quetiapine Fumarate 100 mg 01/31/18 22:00 02/02/18 00:04 Seroquel - PO 100 mg BID SHELL Administration ASSESSMENT AND PLAN: 57 yom with PMHx of bipolar disorder, hypothyroidism,asthma, ?Cardiac history vs chronic LE edema, admitted with acute janae and likely GTC x 2 -Acute janae, bipolar disorder -Likely witnessed GTC x 2 -Lactic acidosis from seizure, resolved -Hypothyroidism -Asthma -Chronic LE edema, vs ?Cardiac disease Plan: Neurology input appreciated, valproete levels low, s/p loading. HOme dose confirmed, depakote SR 1500 mg hs. Patient unable to co-operate with EEG. Unlikely will be able to get MRI given acute janae and lack of co-operation. Neurological exam, non focal and non concerning. Depakote has been increased. Discussed with sandip Sy to d/c to inpatient psych on depakote 2000 mg hs and increased seroquel 150 mg BID. No further inpatient neurological w/u as discussed. Outpatient neurology follow up and depakote level monitoring. Seizure precautions, ativan prn 1:1 constant observation. Psych consult noted. Thyroid studies noted, however, would not change levothyroxine dose as non compliance highly likely given his acute janae. Continue current levothyroxine will repeat levels in 4 weeks. Off IVF, resume lasix at 20 mg daily for LE edema. DVTPPX low risk Dispo No further seizures noted and no further neurological work up at this time. Plan to d/c to inpatient psych when bed available and arranged.
[2018-02-02] MEDS: DIVALPROEX NA *ER* EXTEND REL 500 MG TABLET.SA (FP) PO SCH (21:56)
[2018-02-03] MEDS: HEPARIN NA (PORCINE) 5,000 UNITS/ML 1ML VIAL SQ SCH ×3 (02:50→18:14)
[2018-02-03] MEDS ORDERED: LEVOTHYROXINE NA 125 MCG TABLET (FP) PO SCH (07:00)
--- NOTE | 2018-02-03 07:39 | PN ---
Physical Exam: SUBJECTIVE: Patient seen and examined OBJECTIVE: Vital Signs Period Temp Pulse Resp BP Sys/Machado Pulse Ox Last 24 Hr 97.9 F-98.6 F 93-106 20-20 127-150/75-91 GENERAL: The patient is awake, alert, and fully oriented, in no acute distress. HEAD: Normal with no signs of trauma. EYES: PERRL, extraocular movements intact, sclera anicteric, conjunctiva clear. No ptosis. ENT: Ears normal, nares patent, oropharynx clear without exudates, moist mucous membranes. NECK: Trachea midline, full range of motion, supple. LUNGS: Breath sounds equal, clear to auscultation bilaterally, no wheezes, no crackles, no accessory muscle use. HEART: Regular rate and rhythm, S1, S2 without murmur, rub or gallop. ABDOMEN: Soft, nontender, nondistended, normoactive bowel sounds, no guarding, no rebound, no hepatosplenomegaly, no masses. EXTREMITIES: 2+ pulses, warm, well-perfused, no edema. NEUROLOGICAL: Cranial nerves II through XII grossly intact. Normal speech, gait not observed. PSYCH: Normal mood, normal affect. SKIN: Warm, dry, normal turgor, no rashes or lesions noted Laboratory Results - last 24 hr 02/01/18 07:00 Total T3 89.00 Active Medications Generic Name Dose Route Start Last Admin Trade Name Freq PRN Reason Stop Dose Admin Acetaminophen 650 mg 02/01/18 07:38 02/01/18 08:46 Tylenol - PO 650 mg Q6H PRN Administration HEADACHE Albuterol/Ipratropium 1 amp 01/31/18 11:13 Duoneb - NEB Q6H PRN SHORTNESS OF BREATH Divalproex Sodium 2,000 mg 02/01/18 22:00 02/02/18 21:56 Depakote *Er* - PO 2,000 mg HS SHELL Administration Furosemide 20 mg 02/03/18 10:00 Lasix - PO DAILY SHELL Heparin Sodium (Porcine) 5,000 unit 01/31/18 18:00 02/03/18 02:50 Heparin - SQ 5,000 unit Q8H-IV SHELL Administration Levothyroxine Sodium 125 mcg 02/03/18 07:00 Synthroid - PO DAILY@0700 SHELL Lorazepam 2 mg 02/01/18 17:40 Ativan Injection - IVPUSH Q6H PRN AGITATION Quetiapine Fumarate 150 mg 02/02/18 14:45 02/02/18 21:57 Seroquel - PO 150 mg BID [facility] Administration Active Medications Acetaminophen (Tylenol -) 650 mg PO Q6H PRN PRN Reason: HEADACHE Last Admin: 02/01/18 08:46 Dose: 650 mg Albuterol/Ipratropium (Duoneb -) 1 amp NEB Q6H PRN PRN Reason: SHORTNESS OF BREATH Divalproex Sodium (Depakote *Er* -) 2,000 mg PO HS [facility] Last Admin: 02/02/18 21:56 Dose: 2,000 mg Furosemide (Lasix -) 20 mg PO DAILY [facility] Last Admin: 02/03/18 09:42 Dose: 20 mg Heparin Sodium (Porcine) (Heparin -) 5,000 unit SQ Q8H-IV [facility] Last Admin: 02/03/18 18:14 Dose: Not Given Levothyroxine Sodium (Synthroid -) 125 mcg PO DAILY@0700 [facility] Last Admin: 02/03/18 07:40 Dose: 125 mcg Lorazepam (Ativan Injection -) 2 mg IVPUSH Q6H PRN PRN Reason: AGITATION Quetiapine Fumarate (Seroquel -) 150 mg PO BID [facility] Last Admin: 02/03/18 09:43 Dose: Not Given ASSESSMENT/PLAN:
[2018-02-03] MEDS: QUEtiapine FUMARATE 100 MG TABLET (FP) PO SCH (09:43)
[2018-02-03] MEDS ORDERED: FUROSEMIDE 20 MG TABLET (FP) PO SCH (10:00)
--- NOTE | 2018-02-03 11:03 | PN ---
Progress Note (short form) - Note Progress Note: Patient seen for Psych follow up, case discussed with Medical staff. patient ios medcially stable. MS: alert, oriented, agitated, Hostile and delusional> Patient lacks any insight into his Illness and been very [id number] grandiosed and delsional. nerbally abusive to staff and others> insight m judgememt Impaired. Plan : 5transfer to In patient Psych Hospitalization.
--- NOTE | 2018-02-03 15:23 | PN ---
Teaching Attending Note Name of Resident: Arely Samuels ATTENDING PHYSICIAN STATEMENT I saw and evaluated the patient. I reviewed the resident's note and discussed the case with the resident. I agree with the resident's findings and plan as documented. SUBJECTIVE:paranoid about his medications being switched and not being able to paint. that the medications are killing his organs. refused auditory/visual/ tactile stimuli OBJECTIVE: Last Vital Signs Temp Pulse Resp BP Pulse Ox 98.4 F 90 20 143/97 95 02/03/18 09:39 02/03/18 09:39 02/03/18 09:39 02/03/18 09:39 02/03/18 09:00 General agitated, verbally hostile, tangential, flight of ideas, pressured speech refused my physical exam ASSESSMENT AND PLAN: 57 yo M with PMHx of bipolar disorder, hypothyroidism,asthma, ?Cardiac history vs chronic LE edema, admitted with acute janae and likely GTC x 2 1. Acute jnaae, bipolar disorder- exhibiting clinical signs consistent with acute manic epsiodes iwth no signs of organic causes. refused EEG and MRI. however low suspicion for cause of symptoms with no focal deficits reported by primary team examining on presentation. depakote and Seroquel doses increased. on 1:1 observation. pt would benefit from inpatient psychiatric treatment. pt remains a threat to himseld at this time. psych and neuro on board 2. Lactic acidosis from seizure, resolved 3. Hypothyroidism- TSH elevated but t3 and t4 wnl. would repeat TSH in 6 weeks and adjust LT4 as needed 4. Asthma 5. DVT ppx- hep sq 6. medically optimized for transfer to inpatient psychiatric center.
[2018-02-03] MEDS ORDERED: HALOPERIDOL LACTATE 5 MG/ML IM ONE (17:08)
[2018-02-03] MEDS ORDERED: LORazepam 2 MG/ML SDV VIAL IM ONE (17:09)
[2018-02-03 17:26] VITALS: BP 172/84; PULSE 100; TEMP 99.1
[2018-02-03] MEDS ORDERED: LORazepam 1 MG TABLET PO PRN (17:28)
[2018-02-03] MEDS ORDERED: LORazepam 1 MG TABLET PO ONE (18:00)
--- NOTE | 2018-02-03 19:10 | DS ---
Physical Exam: SUBJECTIVE: Patient seen and examined OBJECTIVE: Vital Signs Period Temp Pulse Resp BP Sys/Machado Pulse Ox Last 24 Hr 97.8 F-99.1 F 90-108 20-20 127-172/84-98 95 PHYSICAL EXAM GENERAL: The patient is awake, alert, and fully oriented, in no acute distress. HEAD: Normal with no signs of trauma. EYES: PERRL, extraocular movements intact, sclera anicteric, conjunctiva clear. ENT: Ears normal, nares patent, oropharynx clear without exudates, moist mucous membranes. NECK: Trachea midline, full range of motion, supple. LUNGS: Breath sounds equal, clear to auscultation bilaterally, no wheezes, no crackles, no accessory muscle use. HEART: Regular rate and rhythm, S1, S2 without murmur, rub or gallop. ABDOMEN: Soft, nontender, nondistended, normoactive bowel sounds, no guarding, no rebound, no hepatosplenomegaly, no masses. EXTREMITIES: 2+ pulses, warm, well-perfused, no edema. NEUROLOGICAL: Cranial nerves II through XII grossly intact. Normal speech, gait not observed. PSYCH: Normal mood, normal affect. SKIN: Warm, dry, normal turgor, no rashes or lesions noted. LABS HOSPITAL COURSE: Date of Admission:01/31/18 Date of Discharge: 02/03/18 Discharge Summary Reason For Visit: SEIZURE; MANIC BEHAVIOR Current Active Problems Bipolar 1 disorder, manic, mild (Acute) Hypothyroid (Acute) Manic behavior (Acute) Seizure (Acute) Condition: Stable - Instructions Diet, Activity, Other Instructions: You were admitted to the hospital for seizures, and are being transferred to [facility] for psychiatric care. Follow their recommendations for diet, activity, and medications. PLease follow up with your primary care doctor a week after discharge. You need to have your thyroid check in 4-6 weeks to ensure that it is in normal range Medications: Your Depakote was increased to 2000mg HS You were started on Seroquel 150mg BID. Below is a complete list of the medications that you are currently taking: Acetaminophen (Tylenol -) 650 mg PO Q6H PRN PRN Reason: HEADACHE Last Admin: 02/01/18 08:46 Dose: 650 mg Divalproex Sodium (Depakote *Er* -) 2,000 mg PO HS SHELL Last Admin: 02/02/18 21:56 Dose: 2,000 mg Furosemide (Lasix -) 20 mg PO DAILY [facility] Last Admin: 02/03/18 09:42 Dose: 20 mg Levothyroxine Sodium (Synthroid -) 125 mcg PO DAILY@0700 [facility] Last Admin: 02/03/18 07:40 Dose: 125 mcg Lorazepam (Ativan Injection -) 2 mg IVPUSH Q6H PRN PRN Reason: AGITATION Quetiapine Fumarate (Seroquel -) 150 mg PO BID [facility] Last Admin: 02/03/18 09:43 Dose: Not Given Please return to the Emergency Department if you have new, worsening, or concerning symptoms. Referrals: Corinne Cordova MD [Staff Physician] - Disposition: TRANSFER ACUTE CARE/OTHER HOSP - Home Medications Comprehensive Discharge Medication List: Ambulatory Orders Albuterol Sulfate [Proair Hfa] 2 puff IH TID 01/31/18 Levothyroxine [Synthroid -] 125 mcg PO DAILY 01/31/18 Divalproex *ER* [Depakote *ER* -] 2,000 mg PO HS tablet.sa 02/03/18 Furosemide [Lasix -] 20 mg PO DAILY tablet 02/03/18 LORazepam [Ativan Injection -] 2 mg IVPUSH Q6H PRN vial MDD 12 02/03/18
== END 2018-02-03 19:23 | disposition short-term general hospital (02) | DRG 885 ==
LOC: JER 00:28 → JERBED 07:27 → J8W 13:40
PROVIDERS: ADMIT Hospitalist; ATTEND Internal Medicine
DX: F30.9 Manic episode, unspecified (principal); E87.2 Acidosis; G40.909 Epilepsy, unspecified, not intractable, without status epilepticus; T42.6X6A Underdosing of other antiepileptic and sedative-hypnotic drugs, initial encounter; E03.9 Hypothyroidism, unspecified; J45.909 Unspecified asthma, uncomplicated; F31.9 Bipolar disorder, unspecified
CPT/HCPCS: 36415; 70450-TC; 71045-TC-FY; 80053; 80164; 80307; 81003; 82140; 82962; 83605; 83735; 84439; 84443; 84480; 85025; 85027; 93005; 93010; 99283-25; J1644; J7030

== ENCOUNTER 2018-05-15 12:11 | Emergency (ER) | payer OTHER ==
[2018-05-15 12:40] VITALS: BMI 37.0
--- NOTE | 2018-05-15 12:42 | PDOC ---
History of Present Illness - General Chief Complaint: Edema Stated Complaint: legs swelling Time Seen by Provider: 05/15/18 12:39 - History of Present Illness Initial Comments: 05/15/18 14:13 Patient is a 58 year old male with a PMH of Bipolar Disorder, Hypothyroidism, Asthma and NIDDM was BIBEMS for agitation and verbal agression against family member. History limited as patient is tangential, flight of ideas during HPI. Patient denies any suicidial or homicidial ideations. Notes he has not taken his psychiatric medications including Olanazpine and Depakote for the past 2-3 days. Past History - Past Medical History Allergies/Adverse Reactions: Allergies Allergy/AdvReac Type Severity Reaction Status Date / Time benztropine [From [employer]] Allergy Severe Verified 05/15/18 12:34 Home Medications: Ambulatory Orders Albuterol Sulfate [Proair Hfa] 2 puff IH TID 01/31/18 Levothyroxine [Synthroid -] 125 mcg PO DAILY 01/31/18 Divalproex *ER* [Depakote *ER* -] 2,000 mg PO HS tablet.sa 02/03/18 Furosemide [Lasix -] 20 mg PO DAILY tablet 02/03/18 LORazepam [Ativan Injection -] 2 mg IVPUSH Q6H PRN vial MDD 12 02/03/18 Fenofibric Acid [Trilipix -] 135 mg PO DAILY 05/15/18 Melatonin [Melatin] 3 mg PO DAILY 05/15/18 Metformin HCl [Glucophage] 500 mg PO DAILY 05/15/18 Olanzapine 7.5 mg PO DAILY 05/15/18 Sennosides [Senna] 8.6 mg PO DAILY 05/15/18 Vitamin D - 1.25 mg PO DAILY 05/15/18 CVA: Yes (x 5 times radha lower ext weakness uses a wheelchair) COPD: Yes Hypercholesterolemia: Yes Psychiatric Problems: Yes (bipolar) Seizures: Yes - Suicide/Smoking/Psychosocial Hx Smoking History: Former smoker Have you smoked in the past 12 months: No Information on smoking cessation initiated: No Hx Alcohol Use: No Drug/Substance Use Hx: No Substance Use Type: None Hx Substance Use Treatment: No Review of Systems - Review of Systems Constitutional: No: Chills, Fever HEENTM: No: Blurred Vision, Double Vision Respiratory: No: Cough, Shortness of Breath, Stridor, Wheezing Cardiac (ROS): No: Chest Pain, Lightheadedness, Palpitations, Syncope ABD/GI: No: Constipated, Diarrhea, Nausea, Vomiting *Physical Exam - Vital Signs Last Vital Signs Temp Pulse Resp BP Pulse Ox 98.6 F 114 H 18 176/100 100 05/15/18 12:34 05/15/18 12:34 05/15/18 12:34 05/15/18 12:34 05/15/18 12:34 - Physical Exam General Appearance: Yes: Nourished, Obese HEENT: positive: EOMI, DINESH Neck: positive: Trachea midline, Supple Respiratory/Chest: positive: Lungs Clear, Normal Breath Sounds. negative: Labored Respiration, Rapid RR Cardiovascular: positive: Regular Rate, S1, S2. negative: JVD, Murmur Gastrointestinal/Abdominal: positive: Soft. negative: Guarding, Rebound, Tenderness, Hernia, Mass Musculoskeletal: positive: Normal Inspection Extremity: positive: Normal Capillary Refill, Normal Inspection Integumentary: positive: Normal Color, Dry, Warm Neurologic: positive: canceling and cutting control clerk II-XII NML intact, Fully Oriented, Alert, Other ( pressured speech, grandiosity, flight of ideas) ED Treatment Course - LABORATORY CBC & Chemistry Diagram: 05/15/18 13:45 05/15/18 13:45 Medical Decision Making - Medical Decision Making 05/15/18 17:04 58 year old male with a PMH of Bipolar disorder presents with confusion and agitation. Notes he has not adhered to his medication regimen. Clinical suspicion for symptomatic bipolar janae 2/2 to medication non-adherence. Will obtain Valproic acid level, as well as TSH and Urine toxicology to r/o thyrotoxicosis or sympathomimetic use. 1:1 sitter. Reassess. Case d/w Dr. العراقي - aware of patient. Recommends treatment with patient's current outpatient psychiatrist. Will come see patient this evening. OTD of Depakote (250 mg). Labs including Depakote level pending. 05/15/18 17:29 Dr. العراقي clears patient for transfer to psych facility. Depakote level supratherapeutic. Mild hypokalemia (3.3) - PO replacement. Urine toxicology negative. 05/15/18 17:40 Patient verbally abusive towards nursing staff - 5/2: Haldol + Ativan. Case d/w psychiatric team @ [facility] - patient accepted for transfer. Patient transferred to [facility]. *DC/Admit/Observation/Transfer Diagnosis at time of Disposition: Manic episode - Discharge Dispostion Disposition: TRANSFER ACUTE CARE/OTHER HOSP Condition at time of disposition: Fair - Referrals - Patient Instructions - Post Discharge Activity
[2018-05-15] MEDS ORDERED: DIVALPROEX NA *ER* EXTEND REL 250 MG TABLET.SA PO ONE (13:41)
--- NOTE | 2018-05-15 13:44 | PDOC ---
Attending Attestation - Resident Resident Name: Sherly Izaguirre - ED Attending Attestation I have performed the following: I have examined & evaluated the patient, The case was reviewed & discussed with the resident, I agree w/resident's findings & plan, Exceptions are as noted - HPI HPI: 05/15/18 13:44 58 M with h/o bipolar d/o, hypothyroid, asthma, presenting to ED with agitation and aggression. EMS was called when pt was verbally aggressive towards a family member. Pt states that he feels "out of his mind" and states that he is being overmedicated. Pt is very tangential and disorganized, unable to provide coherent history. During interview, pt exhibits pressured speech and psychomotor agitation. Pt reports that he normally takes depakote 250mg but has not been taking it as prescribed. He states he feels like he needs a dose to "sort him out". - Physicial Exam PE: 05/15/18 13:49 "GENERAL: Awake, alert, NAD HEAD: No signs of trauma EYES: PERRLA, EOMI, sclera anicteric, conjunctiva clear ENT: Auricles normal inspection, hearing grossly normal, nares patent, oropharynx clear without exudates. Moist mucosa NECK: Nontender, no stepoffs, Normal ROM, supple, no lymphadenopathy, JVD, or masses LUNGS: Breath sounds equal, clear to auscultation bilaterally. No wheezes, and no crackles HEART: Regular rate and rhythm, normal S1 and S2, no murmurs, rubs or gallops ABDOMEN: Soft, nontender, normoactive bowel sounds. No guarding, no rebound. No masses EXTREMITIES: Normal range of motion, no edema. No clubbing or cyanosis. No cords, erythema, or tenderness NEUROLOGICAL: Cranial nerves II through XII intact. 5/5 strength and sensation in all extremities, Normal speech, normal gait, normal cerebellar function SKIN: Warm, Dry, normal turgor, no rashes or lesions noted. PSYCH: + pressured speech, mildly tremulous - Medical Decision Making 05/15/18 13:49 58 M with bipolar disorder presenting with confusion and agitation. Clinically appears to be in acute janae. Also consider sympathomimetic abuse or thyrotoxicosis. - labs, TSH, Utox - Depakote 250mg PO - Psych consult 05/15/18 17:00 Pt to be transferred to [facility] for inpt psych, as discussed with Dr. العراقي. Labs unremarkable. Pt's vitals now normalized, clinically stable for transfer to psych facility.
[2018-05-15 13:56] LABS: BASO % 0.6 % (0-2.0); EOS % 0.2 % (0-4.5); HEMATOCRIT 41.2 % (35.4-49); HEMOGLOBIN 13.9 GM/dL (11.7-16.9); MCH 29.4 pg (25.7-33.7); MCHC 33.8 g/dl (32.0-35.9); MEAN CELL VOLUME 86.8 fl (80-96); MEAN PLT VOLUME 7.2 fl (7.5-11.1); MONO % 7.4 % (3.8-10.2); NEUT % 76.8 % (42.8-82.8); PLATELET COUNT 199 K/MM3 (134-434); RBC 4.75 M/mm3 (4.00-5.60); RDW 16.3 % (11.9-15.9); WHITE BLOOD COUNT 9.2 K/mm3 (4.0-10.0)
[2018-05-15] MEDS ORDERED: DIVALPROEX SODIUM 500 MG TABLET E.C. ONE (14:14)
[2018-05-15 14:30] LABS: ALBUMIN 3.8 g/dl (3.4-5.0); ANION GAP 12 (8-16); BLOOD UREA NITROGEN 25 mg/dL (7-18); CALCIUM 9.3 mg/dL (8.5-10.1); CHLORIDE 98 mmol/L (98-107); CO2 27 mmol/L (21-32); CREATININE 1.2 mg/dL (0.7-1.3); GLUCOSE,RANDOM 124 mg/dL (74-106); POTASSIUM 3.3 mmol/L (3.5-5.1); SGOT/AST 38 U/L (15-37); SGPT/ALT 26 U/L (12-78); SODIUM 137 mmol/L (136-145)
[2018-05-15 14:39] LABS: ALK PHOS 60 U/L (45-117); BILIRUBIN,TOTAL 0.6 mg/dL (0.2-1.0); TOT PROT 7.8 g/dl (6.4-8.2)
[2018-05-15 14:50] LABS: N-TERMINAL BNP 186.05 pg/ml (5-125)
[2018-05-15 16:38] LABS: COCAINE, UR NEGATIVE ng/ml (CUTOFF=300); METHADONE, UR NEGATIVE ng/ml (CUTOFF=300); OPIATES, URI NEGATIVE ng/ml (CUTOFF=300); PHENCYCLIDINE,URINE NEGATIVE ng/ml (CUTOFF=25); URINE AMPHETAMINES NEGATIVE ng/ml (CUTOFF=500); URINE BARBITURATES NEGATIVE ng/ml (CUTOFF=200); URINE BENZODIAZEPINES NEGATIVE ng/ml (CUTOFF=200)
[2018-05-15] MEDS ORDERED: HALOPERIDOL LACTATE 5 MG/ML IM ONE (17:38)
[2018-05-15] MEDS ORDERED: HALOPERIDOL LACTATE 5 MG/ML ONE (17:43)
[2018-05-15] MEDS ORDERED: LORazepam 2 MG/ML SDV VIAL ONE (17:43)
[2018-05-15 18:13] VITALS: TEMP 98.7
[2018-05-15 19:31] VITALS: BP 94/58; PULSE 81
--- NOTE | 2018-05-18 20:27 | EKG ---
Test Reason : Blood Pressure : / mmHG Vent. Rate : 117 BPM Atrial Rate : 117 BPM P-R Int : 146 ms QRS Dur : 094 ms QT Int : 348 ms P-R-T Axes : 059 000 051 degrees QTc Int : 485 ms SINUS TACHYCARDIA NONSPECIFIC ST ABNORMALITY ABNORMAL ECG WHEN COMPARED WITH ECG OF 31-JAN-2018 00:40, FUSION COMPLEXES ARE NO LONGER PRESENT RIGHT BUNDLE BRANCH BLOCK IS NO LONGER PRESENT Confirmed by MD ANJUM, GARCIA ([id number]) on 05/18/2018 8:27:11 PM Referred By: Confirmed By:GARCIA VALERO MD
== END 2018-05-15 20:00 | disposition short-term general hospital (02) ==
LOC: JER 12:11
PROC: 3E033NZ Introduction of Analgesics, Hypnotics, Sedatives into Peripheral Vein, Percutaneous Approach (ICD-10-PCS; principal; 2018-05-15)
PROC: 3E033GC Introduction of Other Therapeutic Substance into Peripheral Vein, Percutaneous Approach (ICD-10-PCS; 2018-05-15)
DX: F31.9 Bipolar disorder, unspecified (principal); E03.9 Hypothyroidism, unspecified; J45.909 Unspecified asthma, uncomplicated; E11.9 Type 2 diabetes mellitus without complications; Z79.84 Long term (current) use of oral hypoglycemic drugs; I69.854 Hemiplegia and hemiparesis following other cerebrovascular disease affecting left non-dominant side; I69.851 Hemiplegia and hemiparesis following other cerebrovascular disease affecting right dominant side; Z87.891 Personal history of nicotine dependence; E87.6 Hypokalemia; Z99.3 Dependence on wheelchair
CPT/HCPCS: 36415; 80053; 80164; 80307; 83880; 84443; 85025; 93005; 93010; 96372; 99284-25

== ENCOUNTER 2019-07-05 23:48 | Inpatient (IN) | payer OTHER ==
[2019-07-06 00:42] VITALS: BMI 34.9
--- NOTE | 2019-07-06 00:53 | PDOC ---
History of Present Illness - General Chief Complaint: CVA/TIA Stated Complaint: UNINTELLIGIBLE SPEECH History Source: Patient Exam Limitations: No Limitations - History of Present Illness Initial Comments: 07/06/19 02:57 59 M with a hx of bipolar disorder (currently on zyprexa), seizure (on depakote) , asthma, and hypothyroidism who presents to the emergency department with difficulty with expression of thoughts with inappropriate responses to questions since 9am. The patient lives with his brother who provided collateral information during the HPI. The patient had difficulties expressing thoughts that is abnormal for him. In addition, the brother said the patient would give inappropriate responses. During the HPI, I asked the patient how he was feeling and he stated that "that is a door over there". According to the brother, he never does this. In addition, he would have long pauses in between words. The patient denies recent traumas. The patient denies having slurred speech. Currently, denies pain. Denies the following: fever, chills, lightheadedness, chest pain, sOB, abdominal pain, dysuria, hematuria, diarrhea, and leg pain/ swelling. Allergies: Haloperidol and benztropine. tPA Exclusion checklist 3-4.5h - Time Elapsed Date last known well: 07/05/19 Time last known well: 09:00 Elaspsed time: 1 Day(s) and 14 Hour(s) and 48 Minutes - Thrombolytic Therapy Candidate Is patient eligible for thrombolytic therapy: No - Exclusion Criteria 3-4.5 hr SBP greater than 185 or DBP greater than 110mmHg despite tx: No Recent IC/spinal surgery,head trauma or stroke<3mos.: No Hx IC hemorrhage, IC neoplasm, AV malformation or aneurysm: No Active internal bleeding: No Blding diathesis(low plt ct, inc PTT,INR>1.7 or use of NOAC): No Symptoms suggest subarachnoid hemorrhage: No CT demonstrates multilobar infarct(>1/3 cerebral hemiphere): No Arterial puncture at noncompressible site in previous 7 days: No Blood glucose concentration less than 50mg/dL (2.7mmol/L): No - Relative Exclusion Criteria 3-4.5 hr Life expectancy <1 yr or severe co-morbid illness: No : No Patient/family refused: No Rapid improvement: Yes Stroke severity too mild: Yes Recent acute [place] (w/in previous 3 months): No Seizure at onset with postictal residual neuro impairments: No Major surgery or serious trauma w/in previous 14 days: No Recent GI or hemorrhage (w/in previous 21 days): No - Add'l Relative Exclusion 3-4.5 hr Age > 80: No Hx of both diabetes AND prior ischemic stroke: No Taking an oral anticoagulant regardless of INR: No NIHSS >25: No - Ineligibility reason(s) Reasons No tPA given: Outside of window - delayed arrival NIH Stroke Scale - Last Known Well Date/Time & Onset Date Last Known Well: 07/05/19 Time Last Known Well: 09:00 - Initial Evaluation Level of consciousness: Alert Ask patient the month and their age: Answers one correctly Ask patient to open & close eyes; make fist and let go: Obeys both correctly Best gaze (horizontal eye movement): Normal Visual field testing: No visual field loss Facial paresis (Show teeth/raise eyebrows/close eyes tight): Normal symmetrical movement Motor Function: Left Arm: Normal Motor Function: Right Arm: Normal (extends arm 90 (or 45) degrees for 10 seconds without drift Motor Function: Left Leg: Normal (extends leg 30 degrees for 5 seconds without drift) Motor Function: Right Leg: Normal (extends leg 30 degrees for 5 seconds without drift) Limb Ataxia: No ataxia Sensory(Use pinprick test arms,legs,trunk,face/side to side): Normal Best language (Describe picture, name items, read sentences): No Aphasia Dysarthria (read several words): Normal articulation Extinction and Inattention: No abnormality - Total Score NIH Stroke Scale Score: 1 Past History - Past Medical History Allergies/Adverse Reactions: Allergies Allergy/AdvReac Type Severity Reaction Status Date / Time benztropine [From Cogentin] Allergy Severe Verified 07/06/19 00:19 haloperidol [From Haldol] Allergy Verified 07/06/19 04:35 Home Medications: Ambulatory Orders Albuterol Sulfate [Proair Hfa] 2 puff IH PRN PRN 01/31/18 Levothyroxine [Synthroid -] 125 mcg PO DAILY 01/31/18 Fenofibric Acid [Trilipix -] 135 mg PO DAILY 05/15/18 Olanzapine 10 mg PO DAILY 05/15/18 Sennosides [Senna] 17.2 mg PO DAILY 05/15/18 Bupropion HCl [Wellbutrin -] 10 mg PO DAILY 07/06/19 Buspirone HCl [Buspar -] 100 mg PO BID 07/06/19 Divalproex *ER* [Depakote *ER* -] 1,000 mg PO AM 07/06/19 Divalproex *ER* [Depakote *ER* -] 1,500 mg PO HS 07/06/19 Ergocalciferol (Vitamin D2) [Vitamin D2] 2,000 unit PO DAILY 07/06/19 Multivitamin [Multiple Vitamins] 1 each PO DAILY 07/06/19 Tamsulosin HCl [Flomax] 0.4 mg PO DAILY 07/06/19 CVA: Yes (x 5 times radha lower ext weakness uses a wheelchair) COPD: No Hypercholesterolemia: Yes Psychiatric Problems: Yes (Bipolar) Seizures: Yes - Suicide/Smoking/Psychosocial Hx Smoking History: Current some day smoker Have you smoked in the past 12 months: No Number of Cigarettes Smoked Daily: 1 Information on smoking cessation initiated: No Hx Alcohol Use: No Drug/Substance Use Hx: No Substance Use Type: None Hx Substance Use Treatment: No Review of Systems - Review of Systems Able to Perform ROS?: Yes Is the patient limited Belarusian proficient: No Constitutional: No: Chills, Diaphoresis, Fever, Weakness HEENTM: No: Eye Pain, Ear Pain, Nose Pain, Throat Pain, Mouth Pain Respiratory: No: Cough, Shortness of Breath, Hemoptysis Cardiac (ROS): No: Chest Pain, Lightheadedness, Palpitations, Syncope ABD/GI: No: Constipated, Diarrhea, Nausea, Rectal Bleeding, Vomiting, Tarry Stools : No: Burning, Dysuria, Hematuria, Incontinence Musculoskeletal: No: Back Pain, Joint Pain, Neck Pain Integumentary: No: Bruising, Erythema, Rash Neurological: No: Headache, Numbness, Tingling, Tremors Psychiatric: No: Change in Appetite Endocrine: No: Unexplained Weight Gain Hematologic/Lymphatic: No: Anemia *Physical Exam - Vital Signs Last Vital Signs Temp Pulse Resp BP Pulse Ox 98.5 F 102 H 20 143/92 97 07/06/19 00:20 07/06/19 00:20 07/06/19 00:20 07/06/19 00:20 07/06/19 00:20 - Physical Exam General Appearance: Yes: Nourished, Appropriately Dressed, Obese, Other (flat affect). No: Apparent Distress, Intoxicated HEENT: positive: EOMI, DINESH, Normal Voice, Symmetrical, Pharynx Normal, Hearing Grossly Normal. negative: Pale Conjunctivae, Scleral Icterus (R), Scleral Icterus (L), Muffled/Hoarse voice, Pharyngeal Erythema, Tonsillar Exudate, Tonsillar Erythema, Nasal Congestion, Rhinorrhea, Sinus Tenderness, Excessive drooling Neck: positive: Trachea midline, Supple. negative: Tender, Lymphadenopathy (R) , Lymphadenopathy (L), Tender lateral, Tender midline Respiratory/Chest: positive: Lungs Clear, Normal Breath Sounds. negative: Chest Tender, Respiratory Distress, Crackles, Rales, Rhonchi, Stridor, Wheezing Cardiovascular: positive: Regular Rhythm, Regular Rate, S1, S2. negative: Systolic Murmur Gastrointestinal/Abdominal: positive: Normal Bowel Sounds, Flat, Soft. negative : Tender, Distended, Guarding, Rebound Lymphatic: negative: Adenopathy Musculoskeletal: positive: Normal Inspection. negative: CVA Tenderness, Vertebral Tenderness Extremity: positive: Normal Capillary Refill, Normal Inspection, Normal Range of Motion. negative: Tender, Swelling, Calf Tenderness Integumentary: positive: Normal Color, Dry, Warm. 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 negative: Fully Oriented (oriented to self and date), Normal Mood/Affect (flat affect), Normal Response (inappropriate responses to questions intermittently), EOM Palsy, Facial Droop, Sensory Deficit , Depressed Affect ED Treatment Course - LABORATORY CBC & Chemistry Diagram: 07/06/19 02:00 07/06/19 02:00 Medical Decision Making - Medical Decision Making 07/06/19 03:47 59 M with a hx of bipolar disorder (currently on zyprexa), seizure (on depakote) , asthma, and hypothyroidism who presents to the emergency department with difficulty with expression of thoughts with inappropriate responses to questions since 9am. Initial vitals: Initial Vital Signs Temp Pulse Resp BP Pulse Ox 98.5 F 102 H 20 143/92 97 07/06/19 00:20 07/06/19 00:20 07/06/19 00:20 07/06/19 00:20 07/06/19 00:20 work up: ddx: CVA vs TIA. Upon reassessment of the patient after the initial intake of information, he was articulating well and did not have aphasia. the patient continues to deny FND and pain. The brother said the patient is back to baseline. He has had a similar episode in the past during a medication close adjustment and recent had his anti-anxiety medications adjusted the prior week. Will conduct a stroke work up. 03:[address] vargas. recommends mri brain without contrast and aspirin and carotid flow doppler. Laboratory Tests 07/06/19 07/06/19 07/06/19 02:00 02:00 02:00 WBC 12.0 H RBC 4.99 Hgb 15.1 Hct 44.9 MCV 90.0 MCH 30.3 MCHC 33.7 RDW 15.1 Plt Count 149 D MPV 6.9 L Absolute Neuts (auto) 8.3 H Neutrophils % 69.1 Neutrophils % (Manual) 55.6 Band Neutrophils % 4.0 Lymphocytes % 20.5 D Lymphocytes % (Manual) 28.3 Monocytes % 9.7 Monocytes % (Manual) 6 Eosinophils % 0.1 Eosinophils % (Manual) 0.0 Basophils % 0.6 Basophils % (Manual) 1.0 Myelocytes % (Man) 5 H Promyelocytes % (Man) 0 Blast Cells % (Manual) 0 Nucleated RBC % 0 Metamyelocytes 0 Hypochromia 0 Toxic Granulation 0 Dohle Bodies 0 Platelet Estimate Decreased Polychromasia 0 Poikilocytosis 0 Basophilic Stippling 0 Anisocytosis 0 Microcytosis 0 Macrocytosis 0 Spherocytes 0 Sickle Cells 0 Target Cells 0 Tear Drop Cells 0 Ovalocytes 0 Stomatocytes 0 Helmet Cells 0 Jeter-Arnold Bodies 0 [place] Rings 0 Mickey Cells 0 Acanthocytes (Spur) 0 Rouleaux 0 Fragmented RBCs 0 Schistocytes 0 PT with INR INR Sodium Potassium Chloride Carbon Dioxide Anion Gap BUN Creatinine Est GFR (CKD-EPI)AfAm Est GFR (CKD-EPI)NonAf Random Glucose Calcium Total Bilirubin AST ALT Alkaline Phosphatase Creatine Kinase 162 Creatine Kinase Index 1.8 CK-MB (CK-2) 3.0 Troponin I < 0.02 Total Protein Albumin Triglycerides Cholesterol Cancelled Total LDL Cholesterol HDL Cholesterol Blood Type Antibody Screen 07/06/19 07/06/19 07/06/19 02:00 02:00 02:00 WBC RBC Hgb Hct MCV MCH MCHC RDW Plt Count MPV Absolute Neuts (auto) Neutrophils % Neutrophils % (Manual) Band Neutrophils % Lymphocytes % Lymphocytes % (Manual) Monocytes % Monocytes % (Manual) Eosinophils % Eosinophils % (Manual) Basophils % Basophils % (Manual) Myelocytes % (Man) Promyelocytes % (Man) Blast Cells % (Manual) Nucleated RBC % Metamyelocytes Hypochromia Toxic Granulation Dohle Bodies Platelet Estimate Polychromasia Poikilocytosis Basophilic Stippling Anisocytosis Microcytosis Macrocytosis Spherocytes Sickle Cells Target Cells Tear Drop Cells Ovalocytes Stomatocytes Helmet Cells Jeter-Arnold Bodies [place] Rings Mickey Cells Acanthocytes (Spur) Rouleaux Fragmented RBCs Schistocytes PT with INR 12.80 INR 1.08 Sodium 140 Potassium 3.5 Chloride 107 Carbon Dioxide 24 Anion Gap 10 BUN 18.3 H Creatinine 1.1 Est GFR (CKD-EPI)AfAm 84.71 Est GFR (CKD-EPI)NonAf 73.09 Random Glucose 95 Calcium 9.0 Total Bilirubin 0.7 AST 41 H ALT 24 Alkaline Phosphatase 88 Creatine Kinase Creatine Kinase Index CK-MB (CK-2) Troponin I Total Protein 7.2 Albumin 3.3 L Triglycerides 319 H Cholesterol 202 H Total LDL Cholesterol 121 H HDL Cholesterol 25 L Blood Type Cancelled Antibody Screen Cancelled leukocytosis noted on labs with elevated cholesterol and TG. the head ct was negative. Will admit for CVA vs TIA. *DC/Admit/Observation/Transfer Diagnosis at time of Disposition: Cerebrovascular accident (CVA) - Referrals - Patient Instructions - Post Discharge Activity
[2019-07-06 02:16] LABS: BASO % 0.6 % (0-2.0); EOS % 0.1 % (0-4.5); HEMATOCRIT 44.9 % (35.4-49); HEMOGLOBIN 15.1 GM/dL (11.7-16.9); LYMPH % 20.5 % (8-40); MCH 30.3 pg (25.7-33.7); MCHC 33.7 g/dl (32.0-35.9); MEAN PLT VOLUME 6.9 fl (7.5-11.1); MONO % 9.7 % (3.8-10.2); NEUT % 69.1 % (42.8-82.8); PLATELET COUNT 149 K/MM3 (134-434); RBC 4.99 M/mm3 (4.00-5.60); RDW 15.1 % (11.9-15.9)
[2019-07-06 02:39] LABS: INR 1.08 (0.83-1.09); PROTHROMBIN TIME (PATIENT) 12.8 SEC (9.7-13.0)
--- NOTE | 2019-07-06 02:46 | PDOC ---
Attending Attestation - Resident Resident Name: Marcin Franco - ED Attending Attestation I have performed the following: I have examined & evaluated the patient, The case was reviewed & discussed with the resident, I agree w/resident's findings & plan - HPI HPI: 07/06/19 02:46 see resident hpi - Physicial Exam PE: 07/06/19 02:50 agree with residet exam - Medical Decision Making 07/06/19 02:50 59-year-old male with a phase or with intermittent altered mental status over the last [address] scan of the brain shows no acute abnormality Stroke alert was activated due to onset less than 24 hours Case discussed with hospitalist service for admission At this time patient is improved Awaiting callback from neurology for further recommendations
[2019-07-06 02:59] LABS: ALBUMIN 3.3 g/dl (3.4-5.0); BILIRUBIN,TOTAL 0.7 mg/dL (0.2-1); BLOOD UREA NITROGEN 18.3 mg/dL (7-18); CREATININE 1.1 mg/dL (0.55-1.3); POTASSIUM 3.5 mmol/L (3.5-5.1); TOT PROT 7.2 g/dl (6.4-8.2)
[2019-07-06] MEDS: SODIUM CHLORIDE 1,000 ML IV SCH (03:18)
[2019-07-06] MEDS ORDERED: ASPIRIN 81 MG CHEWABLE TABLETS PO ONE (03:46)
[2019-07-06] MEDS ORDERED: ASPIRIN 81 MG CHEWABLE TABLETS ONE (04:03)
[2019-07-06 06:19] LABS: ANISOCYTOSIS 0; HELMET CELLS 0; HOWELL-JOLLY BODIES 0; MACROCYTOSIS 0; OVALOCYTE 0; PLATELET ESTIMATE DECREASED; ROULEAU 0; SICKELED CELLS 0; TARGET CELLS 0; TEAR DROP CELLS 0; TOXIC GRANULATION 0
--- NOTE | 2019-07-06 10:32 | CON.NEURO ---
Consult - Alcohol/Substance Use Hx Alcohol Use: No - Smoking History Smoking history: Current some day smoker Have you smoked in the past 12 months: No Aproximately how many cigarettes per day: 1 - Social History Usual Living Arrangement: With Significant Other Home Medications - Allergies Allergies/Adverse Reactions: Allergies Allergy/AdvReac Type Severity Reaction Status Date / Time benztropine [From Cogentin] Allergy Severe Verified 07/06/19 00:19 haloperidol [From Haldol] Allergy Verified 07/06/19 04:35 - Home Medications Home Medications: Ambulatory Orders Albuterol Sulfate [Proair Hfa] 2 puff IH PRN PRN 01/31/18 Levothyroxine [Synthroid -] 125 mcg PO DAILY 01/31/18 Fenofibric Acid [Trilipix -] 135 mg PO DAILY 05/15/18 Olanzapine 10 mg PO DAILY 05/15/18 Sennosides [Senna] 17.2 mg PO DAILY 05/15/18 Bupropion HCl [Wellbutrin -] 100 mg PO DAILY 07/06/19 Buspirone HCl [Buspar -] 10 mg PO BID 07/06/19 Divalproex *ER* [Depakote *ER* -] 1,000 mg PO AM 07/06/19 Divalproex *ER* [Depakote *ER* -] 1,500 mg PO HS 07/06/19 Ergocalciferol (Vitamin D2) [Vitamin D2] 2,000 unit PO DAILY 07/06/19 Multivitamin [Multiple Vitamins] 1 each PO DAILY 07/06/19 Tamsulosin HCl [Flomax] 0.4 mg PO DAILY 07/06/19 Physical Exam-Neuro Vital Signs: Vital Signs Temperature 98.0 F 07/06/19 07:03 Pulse Rate 75 07/06/19 07:03 Respiratory Rate 15 07/06/19 07:03 Blood Pressure 120/85 07/06/19 07:03 O2 Sat by Pulse Oximetry (%) 98 07/06/19 07:03 Labs: CBC, BMP 07/06/19 02:00 07/06/19 02:00 INR, PTT INR 1.08 (0.83-1.09) 07/06/19 02:00 Assessment/Plan CC Slurring of speech and possible stroke HPI 59 year old male history of Bipolar disorder, Epilepsy, asthma, and Hypothyroidsim. Patient presented to ed with difficulty and slurring of speech. Patient had ct head and it is unremarkable. Patient symptoms seems to be resolved. Patient never had stroke before. He denies any focal neurological symptoms. He do get intermittent dizziness at times. PMH as above Allergies/Adverse Reactions: Allergies Allergy/AdvReac Type Severity Reaction Status Date / Time benztropine [From Cogentin] Allergy Severe Verified 07/06/19 00:19 Home Medications: Albuterol Sulfate [Proair Hfa] 2 puff IH TID 01/31/18 Levothyroxine [Synthroid -] 125 mcg PO DAILY 01/31/18 Divalproex *ER* [Depakote *ER* -] 2,000 mg PO HS tablet.sa 02/03/18 Furosemide [Lasix -] 20 mg PO DAILY tablet 02/03/18 LORazepam [Ativan Injection -] 2 mg IVPUSH Q6H PRN vial MDD 12 02/03/18 Fenofibric Acid [Trilipix -] 135 mg PO DAILY 05/15/18 Melatonin [Melatin] 3 mg PO DAILY 05/15/18 Metformin HCl [Glucophage] 500 mg PO DAILY 05/15/18 Olanzapine 7.5 mg PO DAILY 05/15/18 Sennosides [Senna] 8.6 mg PO DAILY 05/15/18 Vitamin D - 1.25 mg PO DAILY 05/15/18 SH,FH,ROS reviewed in chart NEUROLOGICAL EXAMINATION Alert oriented x 3, speech is normal, neck is supple, VSS eomi, pupils reactive no face asymmetry Moving all ext sensation is normal CT head unremarkable Assessment/Plan Transient confusion and slurring of speech ? tia symptoms resolved Plan: Continue apsirin and statin - waiting mri of brain and carotid ultrasound - home medication can be resumed Thanking you so much Eliud Cantrell MD
[2019-07-06] MEDS ORDERED: ALBUTEROL SO4 8 GM HFA INHALER IH PRN (11:12)
--- NOTE | 2019-07-06 11:57 | HP ---
Admitting History and Physical - Admission Chief Complaint: dizziness History of Present Illness: Patient is a 59 year old male who presents to the ED with slurred speech and possible stroke vs TIA. His past medical history includes. bipolar disorder ( on zyprexa), epilepsy (on depakote), asthma, and hypothyroidsim. Patient had ct head and it is unremarkable. He is pending an MRI of brain which is pending. He denies any focal neurological symptoms. He does get intermittent dizziness at times. 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 Pulmonary: Yes: Other Psych: Yes: Anxiety, Other - Smoking History Smoking history: Current some day smoker Have you smoked in the past 12 months: No Aproximately how many cigarettes per day: 1 (denies smoking, last cigarrette 1 month ago) - Alcohol/Substance Use Hx Alcohol Use: No History of Substance Use: reports: None - Social History Usual Living Arrangement: Yes: With Significant Other ADL: Family Assistance History of Recent Travel: No Home Medications - Allergies Allergies/Adverse Reactions: Allergies Allergy/AdvReac Type Severity Reaction Status Date / Time benztropine [From Cogentin] Allergy Severe Verified 07/06/19 00:19 haloperidol [From Haldol] Allergy Verified 07/06/19 04:35 - Home Medications Home Medications: Ambulatory Orders Albuterol Sulfate [Proair Hfa] 2 puff IH PRN PRN 01/31/18 Levothyroxine [Synthroid -] 125 mcg PO DAILY 01/31/18 Fenofibric Acid [Trilipix -] 135 mg PO DAILY 05/15/18 Olanzapine 10 mg PO DAILY 05/15/18 Sennosides [Senna] 17.2 mg PO DAILY 05/15/18 Bupropion HCl [Wellbutrin -] 10 mg PO DAILY 07/06/19 Buspirone HCl [Buspar -] 100 mg PO BID 07/06/19 Divalproex *ER* [Depakote *ER* -] 1,000 mg PO AM 07/06/19 Divalproex *ER* [Depakote *ER* -] 1,500 mg PO HS 07/06/19 Ergocalciferol (Vitamin D2) [Vitamin D2] 2,000 unit PO DAILY 07/06/19 Multivitamin [Multiple Vitamins] 1 each PO DAILY 07/06/19 Tamsulosin HCl [Flomax] 0.4 mg PO DAILY 07/06/19 Family Disease History - Family Disease History Family History: Denies Review of Systems - Review of Systems Constitutional: reports: No Symptoms Eyes: reports: No Symptoms HENT: reports: No Symptoms Neck: reports: No Symptoms Cardiovascular: reports: No Symptoms Respiratory: reports: No Symptoms Gastrointestinal: reports: No Symptoms Genitourinary: reports: No Symptoms Breasts: reports: No Symptoms Reported Musculoskeletal: reports: No Symptoms, Other Integumentary: reports: No Symptoms Neurological: reports: Confusion, Seizure Endocrine: reports: No Symptoms Psychiatric: reports: Anxiety Physical Examination Vital Signs: Vital Signs Temperature 98.0 F 07/06/19 07:03 Pulse Rate 75 07/06/19 07:03 Respiratory Rate 15 07/06/19 07:03 Blood Pressure 120/85 07/06/19 07:03 O2 Sat by Pulse Oximetry (%) 98 07/06/19 07:03 Constitutional: Yes: Anxious Eyes: Yes: WNL HENT: Yes: Atraumatic Neck: Yes: WNL Cardiovascular: Yes: Regular Rate and Rhythm Respiratory: Yes: Diminished Gastrointestinal: Yes: Normal Bowel Sounds, Soft ...Rectal Exam: Yes: Deferred Extremities: Yes: Other Edema: No Wound/Incision: Yes: Clean/Dry Neurological: Yes: Alert, Oriented, Confusion, Lethargy Psychiatric: Yes: Other Labs: CBC, BMP 07/06/19 02:00 07/06/19 02:00 Imaging - Results Chest X-ray: Report Reviewed Problem List - Problems (1) TIA (transient ischemic attack) Assessment/Plan: head ct negative brain mri pending carotid doppler pending will order: - asa daily - speech and swallow eval - physical therapy - statin therapy monitor mental status Code(s): G45.9 - TRANSIENT CEREBRAL ISCHEMIC ATTACK, UNSPECIFIED (3) Hypothyroid Assessment/Plan: continue home medications Code(s): E03.9 - HYPOTHYROIDISM, UNSPECIFIED (4) Seizure Assessment/Plan: on depakote Code(s): R56.9 - UNSPECIFIED CONVULSIONS (5) Prophylactic measure Assessment/Plan: fen chopped diet monitor electrolyes full code Code(s): Z29.9 - ENCOUNTER FOR PROPHYLACTIC MEASURES, UNSPECIFIED Visit type - Emergency Visit Emergency Visit: Yes ED Registration Date: 07/06/19 Care time: The patient presented to the Emergency Department on the above date and was hospitalized for further evaluation of their emergent condition. - New Patient This patient is new to me today: Yes Date on this admission: 07/06/19 - Critical Care Critical Care patient: No
--- NOTE | 2019-07-06 12:07 | CONSULT ---
Admitting History and Physical - Primary Care Physician PCP: Bentley Vasquez - Admission History of Present Illness: 59 year old male history of Bipolar disorder, Epilepsy, asthma, and Hypothyroidism brought to ED for slurred speech intermittent altered mental status over the last 24 hours, reportedly resolved. CT head (-) MRI pending Selected Entries 07/06/19 07/06/19 07/06/19 00:20 02:20 07:03 Temperature 98.5 F 98.0 F Blood Pressure 143/92 Blood Pressure 124/89 120/85 [Right Arm] 07/06/19 07/06/19 07/06/19 08:00 09:00 10:00 Temperature 97.8 F 97.8 F 97.4 F L Blood Pressure Blood Pressure 120/85 124/78 128/84 [Right Arm] 07/06/19 11:00 Temperature 97.4 F L Blood Pressure Blood Pressure 132/85 [Right Arm] Laboratory Tests 07/06/19 02:00 WBC 12.0 H History Source: Patient, Medical Record Limitations to Obtaining History: No Limitations - Smoking History Smoking history: Current some day smoker Have you smoked in the past 12 months: No Aproximately how many cigarettes per day: 1 - Alcohol/Substance Use Hx Alcohol Use: No History - Admission Reason For Visit: APHASIA - Diagnostics X-ray: Report Reviewed CT Scan: Report Reviewed MRI: Pending - General Mental Status: Alert and Oriented, Awake and Alert, Able to Follow Commands Attention: Intact Ability to Follow Directions: Good Head/Neck Control: WFL - Hearing Hearing: Functional Speech Evaluation - Communication Primary Language: LITHUANIAN Communication: Yes: Within Normal Limits - Speech Production Able to Make Needs Known: Yes: WNL Intelligibility: Yes: WNL - Speech Characteristics Voice Loudness: Normal Voice Pitch: Yes: Normal Voice Phonatory-based Quality: Yes: Normal Speech Pattern: Normal Speech Clarity: < 100% Nasal Resonance: Normal Articulation: Yes: Precise - Language/Auditory Comprehension Follows: Yes: 2 Stage Simple Commands - Language/Verbal Expression Able to Respond to Simple Queries: Yes: WNL Able to Communicate Wants and Needs: Yes: WNL Functional Communication Status: Yes: WNL Attention: Yes: Intact - Swallow Evaluation/Bedside Assessment Current Nutritional Intake: NPO Oral Secretions: Yes: WFL Dentition: Yes: Adequate, Missing Teeth Facial Symmetry at Rest: Symmetrical (underbite. Frequent chewing movements- oral dyskinesia?) Facial Symmetry on Retraction: Symmetrical Jaw Position: Closed at Rest, Other (underbite. Mandible anterior to maxilla) Against Resistance Opening: Normal Against Resistance Closing: Normal Pucker Lips: Normal Smile: Normal Lingual Movement: Symmetric Lingual Speed of Movement: Normal Lingual Movement Strgth Against Opposition: Normal Lingual Movement Characteristics: Normal Velopharyngeal Movement: Normal Laryngeal Elevation: WFL Laryngeal Movement: Able to Palpate Rate of Intake: WFL Bolus Size: WFL Labial Seal: WFL Chewing: Impaired (seems labored, inefficient. Pt reports missing dentition, prefers chopped food, but impulsively took large bites of bread) Oral Prep Time: Increased A-P Transit: WFL Pocketing: None Timing of Swallow: Delayed Coughing/Throat Clear: No Change in Voice: No Recommendations - Speech Evaluation, Impression/Plan Impression: Mastication seems labored, inefficient. Pt reports missing dentition , prefers chopped food, but impulsively took large bites of bread. Oral dyskinesia? Swallow is brisk. Pt oriented. Pt reports he had periods where he couldnt talk. He feels it is medication related. - Dysphagia Impressions/Plan Swallowing Skills: Impaired Dysphagia Impressions: Mild Impairment *Silent aspiration: cannot be R/O at bedside Dysphagia Treatment Plan: Small Bites, Chin Tuck/Down, Clear Pocket Food, Trial Feedings, Safe Rate, 1/2 tsp. at a time, Elevate HOB during feed, OOB for meals , OOB for 1 h. after meals - Recommendations Diet Consistency: Dysphagia Whole (with chopped meat) Medication Administration: Whole with water Liquids: Thin Liquids
--- NOTE | 2019-07-06 12:43 | EKG ---
Test Reason : Blood Pressure : / mmHG Vent. Rate : 078 BPM Atrial Rate : 078 BPM P-R Int : 152 ms QRS Dur : 088 ms QT Int : 402 ms P-R-T Axes : 074 -10 058 degrees QTc Int : 458 ms POOR DATA QUALITY, INTERPRETATION MAY BE ADVERSELY AFFECTED NORMAL SINUS RHYTHM NONSPECIFIC T WAVE ABNORMALITY ABNORMAL ECG WHEN COMPARED WITH ECG OF 15-MAY-2018 13:04, VENT. RATE HAS DECREASED BY 39 BPM Confirmed by Marko Cummings MD ([id number]) on 07/06/2019 12:42:44 PM Referred By: Confirmed By:aMrko Cummings MD
[2019-07-06] MEDS: busPIRone HCL 10 MG TABLET (FP) PO SCH ×2 (14:03→22:37)
[2019-07-06] MEDS: FENOFIBRIC ACID 135 MG CAP PO SCH (14:04)
[2019-07-06] MEDS: buPROPion HCL 100 MG TABLET PO SCH (14:04)
[2019-07-06] MEDS: LEVOTHYROXINE NA 125 MCG TABLET (FP) PO SCH (14:04)
[2019-07-06] MEDS ORDERED: busPIRone HCL 5 MG TABLET ONE (22:33)
[2019-07-06] MEDS ORDERED: ATORVASTATIN CA 20 MG TABLET (FP) ONE (22:33)
[2019-07-06] MEDS: ATORVASTATIN CA 20 MG TABLET (FP) PO SCH (22:37)
[2019-07-06 23:53] LABS: EPI CELLS 7.6 /HPF (0-5/HPF); HYALINE CASTS 58 /lpf (0-8); PH,URINE 5.5 (5.0-8.0); URINE APPEARANCE CLEAR; URINE BACTERIA 1.9 /hpf (NEGATIVE); URINE BILIRUBIN NEGATIVE (NEGATIVE); URINE COLOR YELLOW; URINE GLUCOSE (UA) NEGATIVE (NEGATIVE); URINE KETONE NEGATIVE (NEGATIVE); URINE LEUK ESTERASE 1+ (NEGATIVE); URINE NITRITE NEGATIVE (NEGATIVE); URINE PROTEIN NEGATIVE (NEGATIVE); URINE RBC 1 /hpf (0-4); URINE WBC 26 /hpf (0-5)
[2019-07-07 00:07] LABS: COCAINE, UR NEGATIVE ng/ml (CUTOFF=300); METHADONE, UR NEGATIVE ng/ml (CUTOFF=300); OPIATES, URI NEGATIVE ng/ml (CUTOFF=300); PHENCYCLIDINE,URINE NEGATIVE ng/ml (CUTOFF=25); URINE AMPHETAMINES NEGATIVE ng/ml (CUTOFF=500); URINE BARBITURATES NEGATIVE ng/ml (CUTOFF=200); URINE BENZODIAZEPINES NEGATIVE ng/ml (CUTOFF=200)
[2019-07-07] MEDS: SODIUM CHLORIDE 1,000 ML IV SCH ×2 (00:14→06:44)
[2019-07-07] MEDS: LEVOTHYROXINE NA 125 MCG TABLET (FP) PO SCH (06:55)
[2019-07-07] MEDS: DIVALPROEX NA *ER* EXTEND REL 500 MG TABLET.SA (FP) PO SCH (06:56)
[2019-07-07] MEDS: ASPIRIN COATED 81 MG TABLET.EC PO SCH (09:06)
[2019-07-07] MEDS: buPROPion HCL 100 MG TABLET PO SCH (09:06)
[2019-07-07] MEDS: OLANZapine 10 MG TABLET PO SCH (09:06)
[2019-07-07] MEDS: TAMSULOSIN HCL 0.4 MG CAP PO SCH (09:06)
[2019-07-07] MEDS: CHOLECALCIFEROL (VIT D3) 1,000 UNIT (25 MCG) TABLET PO SCH (09:06)
[2019-07-07 09:59] LABS: BASO % 0.5 % (0-2.0); EOS % 0.8 % (0-4.5); HEMATOCRIT 42.4 % (35.4-49); HEMOGLOBIN 14.2 GM/dL (11.7-16.9); LYMPH % 28.2 % (8-40); MCH 30.6 pg (25.7-33.7); MCHC 33.6 g/dl (32.0-35.9); MEAN PLT VOLUME 6.7 fl (7.5-11.1); MONO % 7.9 % (3.8-10.2); NEUT % 62.6 % (42.8-82.8); PLATELET COUNT 137 K/MM3 (134-434); RBC 4.66 M/mm3 (4.00-5.60); RDW 15.1 % (11.9-15.9); WHITE BLOOD COUNT 7.9 K/mm3 (4.0-10.0)
--- NOTE | 2019-07-07 10:46 | PN ---
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 Pt in agreement and tolerating well. Frequent jaw/chewing movement- Oral dyskinesia? Pt reports it is sec to anxiety.
[2019-07-07 10:52] LABS: ALBUMIN 2.8 g/dl (3.4-5.0); BILIRUBIN,TOTAL 0.6 mg/dL (0.2-1); BLOOD UREA NITROGEN 20.1 mg/dL (7-18); CALCIUM 8.7 mg/dL (8.5-10.1); CREATININE 0.9 mg/dL (0.55-1.3); MAGNESIUM 2.4 mg/dL (1.8-2.4); POTASSIUM 3.6 mmol/L (3.5-5.1); TOT PROT 6.4 g/dl (6.4-8.2)
[2019-07-07] MEDS: FENOFIBRIC ACID 135 MG CAP PO SCH (11:29)
[2019-07-07] MEDS: busPIRone HCL 10 MG TABLET (FP) PO SCH ×2 (11:29→22:42)
[2019-07-07 12:16] LABS: ANISOCYTOSIS 0; MACROCYTOSIS 0; PLATELET ESTIMATE DECREASED
--- NOTE | 2019-07-07 16:26 | PN ---
Progress Note, Physician Chief Complaint: denies any complaints. willing to go to rehab. uses a cane at home History of Present Illness: Patient is a 59 year old male who presents to the ED with slurred speech and possible stroke vs TIA. His past medical history includes. bipolar disorder ( on zyprexa), epilepsy (on depakote), asthma, and hypothyroidsim. Patient had ct head and it is unremarkable. brain mri negative. carotid doppler with small plaque, but negative otherwise. He denies any focal neurological symptoms. He does get intermittent dizziness at times. Resting tremors bilaterally. - Current Medication List Current Medications: Active Medications Albuterol Sulfate (Ventolin Hfa Inhaler -) 2 puff IH Q6H PRN PRN Reason: WHEEZING Aspirin (Ecotrin -) 81 mg PO DAILY [facility] Last Admin: 07/07/19 09:06 Dose: 81 mg Atorvastatin Calcium (Lipitor -) 20 mg PO HS [facility] Last Admin: 07/06/19 22:37 Dose: 20 mg Bupropion HCl (Wellbutrin -) 100 mg PO DAILY [facility] Last Admin: 07/07/19 09:06 Dose: 100 mg Buspirone HCl (Buspar -) 10 mg PO BID [facility] Last Admin: 07/07/19 11:29 Dose: 10 mg Cholecalciferol (Vitamin D3 -) 2,000 unit PO DAILY [facility] Last Admin: 07/07/19 09:06 Dose: 2,000 unit Divalproex Sodium (Depakote *Er* -) 1,000 mg PO AM [facility] Last Admin: 07/07/19 06:56 Dose: 1,000 mg Fenofibric Acid (Trilipix -) 135 mg PO DAILY [facility] Last Admin: 07/07/19 11:29 Dose: 135 mg Sodium Chloride (Normal Saline -) 1,000 mls @ 42 mls/hr IV ASDIR [facility] Last Admin: 07/07/19 06:44 Dose: Not Given Levothyroxine Sodium (Synthroid -) 125 mcg PO 0700 [facility] Last Admin: 07/07/19 06:55 Dose: 125 mcg Olanzapine (Zyprexa -) 10 mg PO DAILY [facility] Last Admin: 07/07/19 09:06 Dose: 10 mg Tamsulosin HCl (Flomax -) 0.4 mg PO 0830 [facility] Last Admin: 07/07/19 09:06 Dose: 0.4 mg - Objective Vital Signs: Vital Signs Temperature 98.2 F 07/07/19 14:00 Pulse Rate 87 07/07/19 14:00 Respiratory Rate 18 07/07/19 14:00 Blood Pressure 134/87 07/07/19 14:00 O2 Sat by Pulse Oximetry (%) 98 07/07/19 10:00 Constitutional: Yes: Well Nourished, No Distress Eyes: Yes: WNL HENT: Yes: WNL Cardiovascular: Yes: Regular Rate and Rhythm Respiratory: Yes: Regular Gastrointestinal: Yes: WNL ...Rectal Exam: Yes: Deferred Edema: No Neurological: Yes: Alert, Oriented, Tremors Labs: CBC, BMP 07/07/19 09:47 07/07/19 09:47 INR, PTT INR 1.08 (0.83-1.09) 07/06/19 02:00 Problem List - Problems (1) TIA (transient ischemic attack) Assessment/Plan: head ct negative, brain mri negative. carotid doppler with small plaque but otherwise negative. speech and swallow following. patient only ambulated 5feet with PT. will likely need rehab. authorization pending. on asa daily, statin therapy. Code(s): G45.9 - TRANSIENT CEREBRAL ISCHEMIC ATTACK, UNSPECIFIED (3) Hypothyroid Assessment/Plan: tsh/free t4 elevated. unsure if patient is taking home medications. he is a poor historian, however he states he is compliant. will increase to 150mcg. will need to have levels repeated as an outpatient. Code(s): E03.9 - HYPOTHYROIDISM, UNSPECIFIED (4) Seizure Assessment/Plan: on depakote Code(s): R56.9 - UNSPECIFIED CONVULSIONS (5) Prophylactic measure Assessment/Plan: fen chopped diet monitor electrolyes full code Code(s): Z29.9 - ENCOUNTER FOR PROPHYLACTIC MEASURES, UNSPECIFIED Visit type - Emergency Visit Emergency Visit: Yes ED Registration Date: 07/06/19 Care time: The patient presented to the Emergency Department on the above date and was hospitalized for further evaluation of their emergent condition. - New Patient This patient is new to me today: No - Critical Care Critical Care patient: No - Discharge Referral Referred to [facility] Med [facility].C.: No
--- NOTE | 2019-07-07 18:23 | PN ---
Progress Note (short form) - Note Progress Note: 59 year old male history of Bipolar disorder, Epilepsy, asthma, and Hypothyroidsim. Patient presented to ed with difficulty and slurring of speech. Patient had ct head and it is unremarkable. Patient symptoms seems to be resolved. Patient never had stroke before. He denies any focal neurological symptoms. He do get intermittent dizziness at times. Patient is feeling better and mri of brain is normal. He also complain of tremors /shaking when walking . no tremors at rest NEUROLOGICAL EXAMINATION Alert oriented x 3, speech is normal, neck is supple, VSS eomi, pupils reactive no face asymmetry Moving all ext sensation is normal no resting tremors or dyk CT head unremarkable mri of brain is normal Assessment/Plan Transient confusion and slurring of speech ? tia symptoms resolved 2. tremors are mostly positional, unlikley to be tardive dyskinesia. Plan: Continue apsirin and statin watch for tremors and awaiting psych consult Thanking you so much Eliud Cantrell MD
[2019-07-07] MEDS ORDERED: PT OWN MED DRAWER 7, Y5N ONE (21:46)
[2019-07-07] MEDS: ATORVASTATIN CA 20 MG TABLET (FP) PO SCH (22:42)
[2019-07-08] MEDS ORDERED: PT OWN MED DRAWER 7, Y5N ONE (05:47)
[2019-07-08] MEDS: DIVALPROEX NA *ER* EXTEND REL 500 MG TABLET.SA (FP) PO SCH (06:32)
[2019-07-08] MEDS: SODIUM CHLORIDE 1,000 ML IV SCH (06:32)
[2019-07-08] MEDS ORDERED: LEVOTHYROXINE NA 125 MCG TABLET (FP) PO SCH (07:00)
[2019-07-08] MEDS: CHOLECALCIFEROL (VIT D3) 1,000 UNIT (25 MCG) TABLET PO SCH (09:04)
[2019-07-08] MEDS: buPROPion HCL 100 MG TABLET PO SCH (09:04)
[2019-07-08] MEDS: TAMSULOSIN HCL 0.4 MG CAP PO SCH (09:04)
[2019-07-08] MEDS: OLANZapine 10 MG TABLET PO SCH (09:04)
[2019-07-08] MEDS: ASPIRIN COATED 81 MG TABLET.EC PO SCH (09:05)
[2019-07-08] MEDS: FENOFIBRIC ACID 135 MG CAP PO SCH (09:11)
[2019-07-08] MEDS: busPIRone HCL 10 MG TABLET (FP) PO SCH (09:12)
--- NOTE | 2019-07-08 10:30 | PN ---
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
[2019-07-08 11:23] LABS: BASO % 0.4 % (0-2.0); EOS % 0.3 % (0-4.5); HEMATOCRIT 42.2 % (35.4-49); HEMOGLOBIN 14.3 GM/dL (11.7-16.9); LYMPH % 21.9 % (8-40); MCHC 33.9 g/dl (32.0-35.9); MEAN CELL VOLUME 91.5 fl (80-96); MEAN PLT VOLUME 7.1 fl (7.5-11.1); MONO % 6.6 % (3.8-10.2); NEUT % 70.8 % (42.8-82.8); PLATELET COUNT 153 K/MM3 (134-434); RBC 4.62 M/mm3 (4.00-5.60); RDW 15.1 % (11.9-15.9); WHITE BLOOD COUNT 7.8 K/mm3 (4.0-10.0)
[2019-07-08 11:38] LABS: ALBUMIN 2.9 g/dl (3.4-5.0); BILIRUBIN,TOTAL 0.7 mg/dL (0.2-1); BLOOD UREA NITROGEN 13.8 mg/dL (7-18); CALCIUM 8.6 mg/dL (8.5-10.1); CREATININE 0.9 mg/dL (0.55-1.3); MAGNESIUM 2.4 mg/dL (1.8-2.4); POTASSIUM 3.4 mmol/L (3.5-5.1); TOT PROT 6.5 g/dl (6.4-8.2)
[2019-07-08] MEDS ORDERED: POTASSIUM CHLORIDE TABS 20 MEQ TABLET.ER (FP) PO ONE (13:30)
--- NOTE | 2019-07-08 14:00 | CON.PSY ---
Psychiatry Consult Chief Complaint: 59 Evelyn old male with a long History of BiPolar Disotder being followed at [facility] team. Patient says they have been changing his meds frequently. apperas to have become confused with slurred speech and? disorientation. Able to speak well now but has dry mouth. Not exhibiting nay acute janae or depression. Symptoms: reports: Impaired Concentration, Disorganized/Disruptive Thoughts - Previous Psychiatric Treatment Outpatient: Less than 6 mos ago Inpatient: None, One prior admission - Previous Substance Abuse Treatment Outpatient: None - Reason for Previous Treatment Reason for Previous Treatment: Biploar Illness - Current Medications Current Medications: Active Medications Albuterol Sulfate (Ventolin Hfa Inhaler -) 2 puff IH Q6H PRN PRN Reason: WHEEZING Aspirin (Ecotrin -) 81 mg PO DAILY [facility] Last Admin: 07/08/19 09:05 Dose: 81 mg Atorvastatin Calcium (Lipitor -) 20 mg PO HS [facility] Last Admin: 07/07/19 22:42 Dose: 20 mg Bupropion HCl (Wellbutrin -) 100 mg PO DAILY [facility] Last Admin: 07/08/19 09:04 Dose: 100 mg Cholecalciferol (Vitamin D3 -) 2,000 unit PO DAILY [facility] Last Admin: 07/08/19 09:04 Dose: 2,000 unit Divalproex Sodium (Depakote *Er* -) 1,000 mg PO AM [facility] Last Admin: 07/08/19 06:32 Dose: 1,000 mg Fenofibric Acid (Trilipix -) 135 mg PO DAILY [facility] Last Admin: 07/08/19 09:11 Dose: 135 mg Sodium Chloride (Normal Saline -) 1,000 mls @ 42 mls/hr IV [facility] Last Admin: 07/08/19 06:32 Dose: 42 mls/hr Levothyroxine Sodium (Synthroid -) 150 mcg PO 0700 [facility] Last Admin: 07/08/19 06:32 Dose: 150 mcg Tamsulosin HCl (Flomax -) 0.4 mg PO 0830 [facility] Last Admin: 07/08/19 09:04 Dose: 0.4 mg - Allergies Allergies: Allergies Allergy/AdvReac Type Severity Reaction Status Date / Time benztropine [From Cogentin] Allergy Severe Verified 07/06/19 00:19 haloperidol [From Haldol] Allergy Verified 09/03/19 04:35 - Current Living Status Usual Living Arrangement: With Significant Other - Current Mental Status Evaluation Appearance: Disheveled Attitude: Guarded - Affect Affect: Constrictive Appropriateness: Appropriate to Content - Mood Mood: Euthymic - Speech/Language Expressive: Coherent - Psychomotor Activity Psychomotor Activity: Slowed - Thought Process Thought Process: Intact - Thought Content Delusions: Absent - Self Perception Self Perception: No Impairment - Cognition Attention: Alert Orientation: Time Memory, Short Term: 3/3 Memory, Remote with Promptin/3 - Concentration Serial Sevens Intact: No Simple Calculations Intact: Yes - Abstraction Proverb Interpretation: Intact Judgement: Intact - Insight Insight: Intact - Impulse Control Impulse Control: Good Control - Suicidal Ideation Suicidal Ideation: No - Homicidal Ideation Homicidal Ideation: No Assessment/Plan 1) d/c Zyprexa and buspar . 2) get Valproic acid levels. He takes it for BiPolar not Seizure Disorder. 3)m follow up at [facility] team.
--- NOTE | 2019-07-08 14:29 | PN ---
Progress Note (short form) - Note Progress Note: 59 year old male history of Bipolar disorder, Epilepsy, asthma, and Hypothyroidsim. Patient presented to ed with difficulty and slurring of speech. Patient had ct head and it is unremarkable. Patient symptoms seems to be resolved. Patient never had stroke before. He denies any focal neurological symptoms. He do get intermittent dizziness at times. Patient is feeling better and mri of brain is normal. He also complain of tremors /shaking when walking . no tremors at rest, No new symptms NEUROLOGICAL EXAMINATION Alert oriented x 3, speech is normal, neck is supple, VSS eomi, pupils reactive no face asymmetry Moving all ext sensation is normal no resting tremors or dyk CT head unremarkable mri of brain is normal Assessment/Plan Transient confusion and slurring of speech ? tia symptoms resolved 2. tremors are mostly positional, unlikley to be tardive dyskinesia. psych note appreciated and antipsychotic medicaiton has been stopped. Plan: Continue apsirin and statin - continue supportive care and watch fo rnow Thanking you so much Eliud Cantrell MD
[2019-07-08 15:26] LABS: ANISOCYTOSIS 0; MACROCYTOSIS 0; PLATELET ESTIMATE NORMAL
--- NOTE | 2019-07-08 17:37 | PN ---
Progress Note, Physician Chief Complaint: denies any complaints. willing to go to rehab. uses a cane at home History of Present Illness: Patient is a 59 year old male who presents to the ED with slurred speech and possible stroke vs TIA. His past medical history includes. bipolar disorder, epilepsy, asthma, and hypothyroidsim. Patient had ct head and it is unremarkable. brain mri negative. carotid doppler with small plaque, but negative otherwise. He denies any focal neurological symptoms. He does get intermittent dizziness at times. Resting tremors bilaterally. Patient seen by psyche and medications adjusted. - Current Medication List Current Medications: Active Medications Albuterol Sulfate (Ventolin Hfa Inhaler -) 2 puff IH Q6H PRN PRN Reason: WHEEZING Aspirin (Ecotrin -) 81 mg PO DAILY [facility] Last Admin: 07/08/19 09:05 Dose: 81 mg Atorvastatin Calcium (Lipitor -) 20 mg PO HS [facility] Last Admin: 07/07/19 22:42 Dose: 20 mg Bupropion HCl (Wellbutrin -) 100 mg PO DAILY [facility] Last Admin: 07/08/19 09:04 Dose: 100 mg Cholecalciferol (Vitamin D3 -) 2,000 unit PO DAILY [facility] Last Admin: 07/08/19 09:04 Dose: 2,000 unit Divalproex Sodium (Depakote *Er* -) 1,000 mg PO AM [facility] Last Admin: 07/08/19 06:32 Dose: 1,000 mg Fenofibric Acid (Trilipix -) 135 mg PO DAILY [facility] Last Admin: 07/08/19 09:11 Dose: 135 mg Sodium Chloride (Normal Saline -) 1,000 mls @ 42 mls/hr IV [facility] Last Admin: 07/08/19 06:32 Dose: 42 mls/hr Levothyroxine Sodium (Synthroid -) 150 mcg PO 0700 [facility] Last Admin: 07/08/19 06:32 Dose: 150 mcg Tamsulosin HCl (Flomax -) 0.4 mg PO 0830 [facility] Last Admin: 07/08/19 09:04 Dose: 0.4 mg - Objective Vital Signs: Vital Signs Temperature 98.3 F 07/08/19 13:53 Pulse Rate 85 07/08/19 13:53 Respiratory Rate 20 07/08/19 13:53 Blood Pressure 132/77 07/08/19 13:53 O2 Sat by Pulse Oximetry (%) 96 07/08/19 09:00 Constitutional: Yes: Well Nourished, No Distress Eyes: Yes: WNL HENT: Yes: Atraumatic Neck: Yes: Tenderness Cardiovascular: Yes: Regular Rate and Rhythm Respiratory: Yes: Regular, CTA Bilaterally Gastrointestinal: Yes: Normal Bowel Sounds, Soft ...Rectal Exam: Yes: Deferred Genitourinary: Yes: WNL Edema: No Peripheral Pulses WNL: Yes Integumentary: Yes: WNL Neurological: Yes: Alert, Oriented Labs: CBC, BMP 07/08/19 10:49 07/08/19 10:49 INR, PTT INR 1.08 (0.83-1.09) 07/06/19 02:00 Problem List - Problems (1) TIA (transient ischemic attack) Assessment/Plan: possible TIA. head ct negative and brain mri negative. carotid doppler with small plaque but otherwise negative. speech and swallow following. patient only ambulated 5 feet with PT. will likely need rehab. authorization pending. on asa daily, statin therapy. Code(s): G45.9 - TRANSIENT CEREBRAL ISCHEMIC ATTACK, UNSPECIFIED (3) Hypothyroid Assessment/Plan: tsh/free t4 elevated. unsure if patient is taking home medications. he is a poor historian, however he states he is compliant. will increase to 150mcg. will need to have levels repeated as an outpatient. Code(s): E03.9 - HYPOTHYROIDISM, UNSPECIFIED (4) Seizure Assessment/Plan: Code(s): R56.9 - UNSPECIFIED CONVULSIONS (5) Prophylactic measure Assessment/Plan: fen chopped diet monitor electrolyes full code Code(s): Z29.9 - ENCOUNTER FOR PROPHYLACTIC MEASURES, UNSPECIFIED (6) Bipolar 1 disorder Assessment/Plan: on depakote Code(s): F31.9 - BIPOLAR DISORDER, UNSPECIFIED Visit type - Emergency Visit Emergency Visit: Yes ED Registration Date: 07/06/19 Care time: The patient presented to the Emergency Department on the above date and was hospitalized for further evaluation of their emergent condition. - New Patient This patient is new to me today: No - Critical Care Critical Care patient: No - Discharge Referral Referred to [facility] Med P.C.: No
[2019-07-08] MEDS: ATORVASTATIN CA 20 MG TABLET (FP) PO SCH (22:06)
[2019-07-09] MEDS: SODIUM CHLORIDE 1,000 ML IV SCH (01:45)
[2019-07-09] MEDS ORDERED: LEVOTHYROXINE NA 100 MCG TABLET (FP) ONE (06:07)
[2019-07-09] MEDS ORDERED: LEVOTHYROXINE NA 50 MCG TABLET (FP) ONE (06:08)
[2019-07-09] MEDS: DIVALPROEX NA *ER* EXTEND REL 500 MG TABLET.SA (FP) PO SCH (06:23)
[2019-07-09] MEDS ORDERED: LEVOTHYROXINE 100 MCG, LEVOTHYROXINE 50 MCG PO SCH (07:00)
[2019-07-09] MEDS ORDERED: PT OWN MED DRAWER 7, Y5N ONE ×2 (08:35→08:46)
[2019-07-09] MEDS: TAMSULOSIN HCL 0.4 MG CAP PO SCH (08:53)
[2019-07-09] MEDS: ASPIRIN COATED 81 MG TABLET.EC PO SCH (09:03)
[2019-07-09] MEDS: CHOLECALCIFEROL (VIT D3) 1,000 UNIT (25 MCG) TABLET PO SCH (09:03)
[2019-07-09] MEDS: FENOFIBRIC ACID 135 MG CAP PO SCH (09:03)
[2019-07-09] MEDS: buPROPion HCL 100 MG TABLET PO SCH (09:03)
--- NOTE | 2019-07-09 10:13 | PN ---
Progress Note (short form) - Note Progress Note: 59 year old male history of Bipolar disorder, Epilepsy, asthma, and Hypothyroidsim. Patient presented to ed with difficulty and slurring of speech. Patient had ct head and it is unremarkable. Patient symptoms seems to be resolved. Patient never had stroke before. He denies any focal neurological symptoms. He do get intermittent dizziness at times. Patient is feeling better and mri of brain is normal. He also complain of tremors /shaking when walking . no tremors at rest, No new symptms NEUROLOGICAL EXAMINATION Alert oriented x 3, speech is normal, neck is supple, VSS eomi, pupils reactive no face asymmetry Moving all ext sensation is normal no resting tremors or dykinesia CT head unremarkable mri of brain is normal Assessment/Plan Transient confusion and slurring of speech ? tia symptoms resolved 2. tremors are mostly positional, unlikley to be tardive dyskinesia.watch fo rnow Plan: Continue apsirin and statin - continue supportive care -PT Thanking you so much Eliud Cantrell MD
[2019-07-09 11:13] LABS: BASO % 0.7 % (0-2.0); EOS % 0.7 % (0-4.5); HEMATOCRIT 41.9 % (35.4-49); HEMOGLOBIN 14.2 GM/dL (11.7-16.9); LYMPH % 26.8 % (8-40); MCH 31.1 pg (25.7-33.7); MEAN CELL VOLUME 91.4 fl (80-96); MEAN PLT VOLUME 7.1 fl (7.5-11.1); MONO % 7.8 % (3.8-10.2); PLATELET COUNT 142 K/MM3 (134-434); RBC 4.58 M/mm3 (4.00-5.60); RDW 15.2 % (11.9-15.9); WHITE BLOOD COUNT 6.6 K/mm3 (4.0-10.0)
[2019-07-09 11:41] LABS: ALBUMIN 2.9 g/dl (3.4-5.0); BILIRUBIN,TOTAL 0.7 mg/dL (0.2-1); BLOOD UREA NITROGEN 17.4 mg/dL (7-18); CREATININE 0.9 mg/dL (0.55-1.3); MAGNESIUM 2.4 mg/dL (1.8-2.4); POTASSIUM 3.8 mmol/L (3.5-5.1); TOT PROT 6.4 g/dl (6.4-8.2)
[2019-07-09 12:00] LABS: PLATELET ESTIMATE DECREASED
--- NOTE | 2019-07-09 12:57 | PN ---
Progress Note, Physician Chief Complaint: denies any complaints. willing to go to rehab. uses a cane at home History of Present Illness: Patient is a 59 year old male who presents to the ED with slurred speech and possible stroke vs TIA. His past medical history includes. bipolar disorder, epilepsy, asthma, and hypothyroidsim. Patient had ct head and it is unremarkable. brain mri negative. carotid doppler with small plaque, but negative otherwise. He denies any focal neurological symptoms. He does get intermittent dizziness at times. Resting tremors bilaterally. Patient seen by psyche and medications adjusted. - Current Medication List Current Medications: Active Medications Albuterol Sulfate (Ventolin Hfa Inhaler -) 2 puff IH Q6H PRN PRN Reason: WHEEZING Aspirin (Ecotrin -) 81 mg PO DAILY [facility] Last Admin: 07/09/19 09:03 Dose: 81 mg Atorvastatin Calcium (Lipitor -) 20 mg PO HS [facility] Last Admin: 07/08/19 22:06 Dose: 20 mg Bupropion HCl (Wellbutrin -) 100 mg PO DAILY [facility] Last Admin: 07/09/19 09:03 Dose: 100 mg Cholecalciferol (Vitamin D3 -) 2,000 unit PO DAILY [facility] Last Admin: 07/09/19 09:03 Dose: 2,000 unit Divalproex Sodium (Depakote *Er* -) 1,000 mg PO AM [facility] Last Admin: 07/09/19 06:23 Dose: 1,000 mg Fenofibric Acid (Trilipix -) 135 mg PO DAILY [facility] Last Admin: 07/09/19 09:03 Dose: 135 mg Levothyroxine Sodium (Synthroid -) 150 mcg PO DAILY@0700 [facility] Tamsulosin HCl (Flomax -) 0.4 mg PO 0830 [facility] Last Admin: 07/09/19 08:53 Dose: 0.4 mg - Objective Vital Signs: Vital Signs Temperature 97.7 F 07/09/19 10:00 Pulse Rate 67 07/09/19 10:00 Respiratory Rate 18 07/09/19 10:00 Blood Pressure 132/81 07/09/19 10:00 O2 Sat by Pulse Oximetry (%) 95 07/08/19 21:00 Constitutional: Yes: No Distress Eyes: Yes: Conjunctiva Clear HENT: Yes: Atraumatic Neck: Yes: Supple Cardiovascular: Yes: Regular Rate and Rhythm Respiratory: Yes: Regular Labs: CBC, BMP 07/09/19 10:30 07/09/19 10:30 INR, PTT INR 1.08 (0.83-1.09) 07/06/19 02:00 Problem List - Problems (1) TIA (transient ischemic attack) Assessment/Plan: possible TIA. head ct negative and brain mri negative. carotid doppler with small plaque but otherwise negative. speech and swallow following. patient only ambulated 5 feet with PT. will likely need rehab. authorization pending. on asa daily, statin therapy. Code(s): G45.9 - TRANSIENT CEREBRAL ISCHEMIC ATTACK, UNSPECIFIED (3) Hypothyroid Assessment/Plan: tsh/free t4 elevated. unsure if patient is taking home medications. he is a poor historian, however he states he is compliant. will increase to 150mcg. will need to have levels repeated as an outpatient. Code(s): E03.9 - HYPOTHYROIDISM, UNSPECIFIED (4) Seizure Assessment/Plan: Code(s): R56.9 - UNSPECIFIED CONVULSIONS (5) Prophylactic measure Assessment/Plan: fen chopped diet monitor electrolyes full code Code(s): Z29.9 - ENCOUNTER FOR PROPHYLACTIC MEASURES, UNSPECIFIED (6) Bipolar 1 disorder Assessment/Plan: on depakote Code(s): F31.9 - BIPOLAR DISORDER, UNSPECIFIED Visit type - Emergency Visit Emergency Visit: Yes ED Registration Date: 07/06/19 Care time: The patient presented to the Emergency Department on the above date and was hospitalized for further evaluation of their emergent condition. - New Patient This patient is new to me today: No - Critical Care Critical Care patient: No - Discharge Referral Referred to [facility] Med [facility].C.: No
--- NOTE | 2019-07-09 14:35 | PN ---
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 Tolerating Dys whole diet.
--- NOTE | 2019-07-09 15:36 | DS ---
Physical Exam: SUBJECTIVE: Patient seen and examined at the bedside. OBJECTIVE: for discharge home. Vital Signs Period Temp Pulse Resp BP Sys/[place]ado Pulse Ox Last 24 Hr 97.7 F-98.9 F 60-85 17-20 108-137/70-88 95-95 PHYSICAL EXAM GENERAL: The patient is awake, alert, and fully oriented, in no acute distress. HEAD: Normal with no signs of trauma. EYES: PERRL, extraocular movements intact, sclera anicteric, conjunctiva clear. ENT: Ears normal, nares patent, oropharynx clear without exudates, moist mucous membranes. NECK: Trachea midline, full range of motion, supple. HEART: Regular rate and rhythm ABDOMEN: Soft, nontender, nondistended, normoactive bowel sounds, no guarding, no rebound, no hepatosplenomegaly, no masses. EXTREMITIES: 2+ pulses, warm, well-perfused, no edema. NEUROLOGICAL: Cranial nerves II through XII grossly intact. Normal speech, gait not observed. PSYCH: anxious LABS Laboratory Results - last 24 hr 07/09/19 07/09/19 10:30 10:30 WBC 6.6 RBC 4.58 Hgb 14.2 Hct 41.9 MCV 91.4 MCH 31.1 MCHC 34.0 RDW 15.2 Plt Count 142 MPV 7.1 L Absolute Neuts (auto) 4.2 Neutrophils % 64.0 Neutrophils % (Manual) 65.3 D Band Neutrophils % 2.0 Lymphocytes % 26.8 D Lymphocytes % (Manual) 24.5 Monocytes % 7.8 Monocytes % (Manual) 2 L Eosinophils % 0.7 D Eosinophils % (Manual) 1.0 Basophils % 0.7 Basophils % (Manual) 0.0 Myelocytes % (Man) 1 D Nucleated RBC % 0 Metamyelocytes 1 D Platelet Estimate Decreased Platelet Comment Slide reviewed Sodium 144 Potassium 3.8 Chloride 107 Carbon Dioxide 29 Anion Gap 8 BUN 17.4 Creatinine 0.9 Est GFR (CKD-EPI)AfAm 107.97 Est GFR (CKD-EPI)NonAf 93.16 Random Glucose 94 Calcium 9.0 Magnesium 2.4 Total Bilirubin 0.7 AST 48 H ALT 28 Alkaline Phosphatase 81 Total Protein 6.4 Albumin 2.9 L HOSPITAL COURSE: Date of Admission:07/06/19 Date of Discharge: 07/09/19 Minutes to complete discharge: 60 Discharge Summary Reason For Visit: APHASIA Current Active Problems Bipolar 1 disorder (Acute) Cerebrovascular accident (CVA) (Acute) Prophylactic measure (Acute) TIA (transient ischemic attack) (Acute) Condition: Improved - Instructions Diet, Activity, Other Instructions: Mr Simmons: You were admitted for a possible TIA. Your workup up was negative. You were seen by a neurologist and we will be sending you to rehab today. continue the medications as outlined in your discharge instructions. It is important that you follow up with Dr. Cantrell. His information is enclosed. Thank you for allowing us to care for you. STOP taking the BUSPAR STOP taking the Zyprexa Referrals: Eliud Cantrell MD [Staff Physician] - Disposition: HOME - Home Medications Comprehensive Discharge Medication List: Ambulatory Orders Albuterol Sulfate [Proair Hfa] 2 puff IH PRN PRN 01/31/18 Fenofibric Acid [Trilipix -] 135 mg PO DAILY 05/15/18 Sennosides [Senna] 17.2 mg PO DAILY 05/15/18 Bupropion HCl [Wellbutrin -] 10 mg PO DAILY 07/06/19 Divalproex *ER* [Depakote *ER* -] 1,000 mg PO AM 07/06/19 Ergocalciferol (Vitamin D2) [Vitamin D2] 2,000 unit PO DAILY 07/06/19 Multivitamin [Multiple Vitamins] 1 each PO DAILY 07/06/19 Tamsulosin HCl [Flomax -] 0.4 mg PO DAILY 07/06/19 Aspirin Coated [Ecotrin -] 81 mg PO DAILY tablet.ec 07/09/19 Atorvastatin Ca [Lipitor] 20 mg PO HS tablet 07/09/19 Levothyroxine [Synthroid -] 150 mcg PO DAILY@0700 tablet 07/09/19 Problem List - Problems (1) TIA (transient ischemic attack) Assessment/Plan: possible TIA. head ct negative and brain mri negative. carotid doppler with small plaque but otherwise negative. speech and swallow following. patient only ambulated 5 feet with PT. for rehab. on asa daily, statin therapy. Code(s): G45.9 - TRANSIENT CEREBRAL ISCHEMIC ATTACK, UNSPECIFIED (3) Hypothyroid Assessment/Plan: tsh/free t4 elevated. unsure if patient is taking home medications. he is a poor historian, however he states he is compliant. will increase to 150mcg. will need to have levels repeated as an outpatient. Code(s): E03.9 - HYPOTHYROIDISM, UNSPECIFIED (4) Seizure Assessment/Plan: Code(s): R56.9 - UNSPECIFIED CONVULSIONS (5) Bipolar 1 disorder Assessment/Plan: on depakote Code(s): F31.9 - BIPOLAR DISORDER, UNSPECIFIED (6) Hypertension Assessment/Plan: started on norvasc Code(s): I10 - ESSENTIAL (PRIMARY) HYPERTENSION (7) Prophylactic measure Assessment/Plan: fen chopped diet monitor electrolyes full code Code(s): Z29.9 - ENCOUNTER FOR PROPHYLACTIC MEASURES, UNSPECIFIED This patient is new to me today: Yes Date on this admission: 07/10/19 Emergency Visit: No Critical Care patient: No - Discharge Referral Referred to [facility] No
[2019-07-09] MEDS ORDERED: hydrALAZINE HCL 50 MG TABLET (FP) PO ONE (21:29)
[2019-07-09] MEDS: ATORVASTATIN CA 20 MG TABLET (FP) PO SCH (21:49)
[2019-07-10] MEDS ORDERED: PT OWN MED DRAWER 7, Y5N ONE ×2 (06:31→08:44)
[2019-07-10] MEDS: DIVALPROEX NA *ER* EXTEND REL 500 MG TABLET.SA (FP) PO SCH (06:32)
[2019-07-10] MEDS ORDERED: LEVOTHYROXINE NA 150 MCG TABLET PO SCH (07:00)
--- NOTE | 2019-07-10 08:23 | PN ---
Progress Note, Physician Chief Complaint: denies any complaints. willing to go to rehab. uses a cane at home denies headaches, states he felt nervous yesterday when they came to pick him up to take him to rehab. History of Present Illness: Patient is a 59 year old male who presents to the ED with slurred speech and possible stroke vs TIA. His past medical history includes. bipolar disorder, epilepsy, asthma, and hypothyroidsim. Patient had ct head and it is unremarkable. brain mri negative. carotid doppler with small plaque, but negative otherwise. He denies any focal neurological symptoms. He does get intermittent dizziness at times. Resting tremors bilaterally. Patient seen by psyche and medications adjusted. Patient was for discharge to rehab yesterday, but discharge cancelled after patient became hypertensive overnight. He was given one dose of hydralazine. Will start on low dose norvasc. His BP is more stable today and he is asymptomatic. - Current Medication List Current Medications: Active Medications Albuterol Sulfate (Ventolin Hfa Inhaler -) 2 puff IH Q6H PRN PRN Reason: WHEEZING Amlodipine Besylate (Norvasc -) 5 mg PO DAILY [facility] Aspirin (Ecotrin -) 81 mg PO DAILY [facility] Last Admin: 07/09/19 09:03 Dose: 81 mg Atorvastatin Calcium (Lipitor -) 20 mg PO HS [facility] Last Admin: 07/09/19 21:49 Dose: 20 mg Bupropion HCl (Wellbutrin -) 100 mg PO DAILY [facility] Last Admin: 07/09/19 09:03 Dose: 100 mg Cholecalciferol (Vitamin D3 -) 2,000 unit PO DAILY [facility] Last Admin: 07/09/19 09:03 Dose: 2,000 unit Divalproex Sodium (Depakote *Er* -) 1,000 mg PO AM [facility] Last Admin: 07/10/19 06:32 Dose: 1,000 mg Fenofibric Acid (Trilipix -) 135 mg PO DAILY [facility] Last Admin: 07/09/19 09:03 Dose: 135 mg Levothyroxine Sodium (Synthroid -) 150 mcg PO DAILY@0700 [facility] Last Admin: 07/10/19 06:32 Dose: 150 mcg Tamsulosin HCl (Flomax -) 0.4 mg PO 0830 [facility] Last Admin: 07/09/19 08:53 Dose: 0.4 mg - Objective Vital Signs: Vital Signs Temperature 98.8 F 07/10/19 05:00 Pulse Rate 83 07/10/19 05:00 Respiratory Rate 18 07/09/19 23:00 Blood Pressure 157/91 07/10/19 05:00 O2 Sat by Pulse Oximetry (%) 94 L 07/09/19 21:00 Constitutional: Yes: Well Nourished, No Distress Eyes: Yes: WNL HENT: Yes: Atraumatic Neck: Yes: Supple Cardiovascular: Yes: Regular Rate and Rhythm Respiratory: Yes: Regular Gastrointestinal: Yes: WNL Labs: INR, PTT INR 1.08 (0.83-1.09) 07/06/19 02:00 Problem List - Problems (1) TIA (transient ischemic attack) Assessment/Plan: possible TIA. head ct negative and brain mri negative. carotid doppler with small plaque but otherwise negative. speech and swallow following. patient only ambulated 5 feet with PT. for rehab. on asa daily, statin therapy. Code(s): G45.9 - TRANSIENT CEREBRAL ISCHEMIC ATTACK, UNSPECIFIED (3) Hypothyroid Assessment/Plan: tsh/free t4 elevated. unsure if patient is taking home medications. he is a poor historian, however he states he is compliant. will increase to 150mcg. will need to have levels repeated as an outpatient. Code(s): E03.9 - HYPOTHYROIDISM, UNSPECIFIED (4) Seizure Assessment/Plan: Code(s): R56.9 - UNSPECIFIED CONVULSIONS (5) Bipolar 1 disorder Assessment/Plan: on depakote Code(s): F31.9 - BIPOLAR DISORDER, UNSPECIFIED (6) Prophylactic measure Assessment/Plan: fen chopped diet monitor electrolyes full code Code(s): Z29.9 - ENCOUNTER FOR PROPHYLACTIC MEASURES, UNSPECIFIED Visit type - Emergency Visit Emergency Visit: Yes ED Registration Date: 07/06/19 Care time: The patient presented to the Emergency Department on the above date and was hospitalized for further evaluation of their emergent condition. - New Patient This patient is new to me today: No - Critical Care Critical Care patient: No - Discharge Referral Referred to [facility] No
[2019-07-10 08:43] LABS: BASO % 0.4 % (0-2.0); EOS % 0.2 % (0-4.5); HEMATOCRIT 44.1 % (35.4-49); LYMPH % 24.8 % (8-40); MCH 30.8 pg (25.7-33.7); MCHC 34.1 g/dl (32.0-35.9); MEAN CELL VOLUME 90.3 fl (80-96); MEAN PLT VOLUME 7.2 fl (7.5-11.1); MONO % 8.2 % (3.8-10.2); NEUT % 66.4 % (42.8-82.8); PLATELET COUNT 190 K/MM3 (134-434); RBC 4.88 M/mm3 (4.00-5.60); RDW 15.1 % (11.9-15.9); WHITE BLOOD COUNT 9.1 K/mm3 (4.0-10.0)
[2019-07-10] MEDS: buPROPion HCL 100 MG TABLET PO SCH (09:05)
[2019-07-10] MEDS: TAMSULOSIN HCL 0.4 MG CAP PO SCH (09:05)
[2019-07-10] MEDS: CHOLECALCIFEROL (VIT D3) 1,000 UNIT (25 MCG) TABLET PO SCH (09:05)
[2019-07-10] MEDS: ASPIRIN COATED 81 MG TABLET.EC PO SCH (09:05)
[2019-07-10 09:06] LABS: ALBUMIN 3.2 g/dl (3.4-5.0); BILIRUBIN,TOTAL 0.8 mg/dL (0.2-1); BLOOD UREA NITROGEN 14.9 mg/dL (7-18); CREATININE 0.9 mg/dL (0.55-1.3); MAGNESIUM 2.4 mg/dL (1.8-2.4); POTASSIUM 3.7 mmol/L (3.5-5.1)
[2019-07-10] MEDS: FENOFIBRIC ACID 135 MG CAP PO SCH (09:06)
[2019-07-10] MEDS ORDERED: amLODIPine BESYLATE 5 MG TABLET (FP) PO SCH (10:00)
[2019-07-10 10:51] LABS: ANISOCYTOSIS 0; MACROCYTOSIS 0; PLATELET ESTIMATE NORMAL
[2019-07-10] MEDS ORDERED: ALBUTEROL SO4 8 GM HFA INHALER IH PRN (20:22)
[2019-07-10] MEDS: ATORVASTATIN CA 20 MG TABLET (FP) PO SCH (21:47)
[2019-07-10] MEDS ORDERED: ASPIRIN 81 MG CHEWABLE TABLETS PO ONE (22:32)
[2019-07-11] MEDS: DIVALPROEX NA *ER* EXTEND REL 500 MG TABLET.SA (FP) PO SCH (06:26)
[2019-07-11] MEDS: LEVOTHYROXINE NA 150 MCG TABLET PO SCH (06:26)
[2019-07-11] MEDS ORDERED: PT OWN MED DRAWER 7, Y5N ONE ×2 (09:47→15:19)
[2019-07-11] MEDS: FENOFIBRIC ACID 135 MG CAP PO SCH (09:48)
[2019-07-11] MEDS: CHOLECALCIFEROL (VIT D3) 1,000 UNIT (25 MCG) TABLET PO SCH (09:48)
[2019-07-11] MEDS: ASPIRIN COATED 81 MG TABLET.EC PO SCH (09:49)
[2019-07-11] MEDS: TAMSULOSIN HCL 0.4 MG CAP PO SCH (09:49)
[2019-07-11] MEDS: buPROPion HCL 100 MG TABLET PO SCH (09:49)
[2019-07-11] MEDS: amLODIPine BESYLATE 5 MG TABLET (FP) PO SCH (09:49)
[2019-07-11 12:44] LABS: BILIRUBIN,TOTAL 0.7 mg/dL (0.2-1); CALCIUM 9.1 mg/dL (8.5-10.1); POTASSIUM 4.1 mmol/L (3.5-5.1); TOT PROT 6.6 g/dl (6.4-8.2)
[2019-07-11] MEDS ORDERED: ALBUTEROL SO4 2.5/IPRATROPIUM 0.5 INH SOL 3 ML VIAL.NEB. NEB PRN (13:53)
[2019-07-11] MEDS ORDERED: LIDOCAINE 5% TOPICAL PATCH TP ONE (14:00)
[2019-07-11] MEDS ORDERED: LIDOCAINE 5% TOPICAL PATCH TP SCH (14:00)
[2019-07-11] MEDS: FLUTICASONE/SALMETEROL 100 MCG/50 MCG DISKUS IH SCH ×2 (15:23→21:07)
--- NOTE | 2019-07-11 15:37 | PN ---
Progress Note, Physician Chief Complaint: denies any complaints. willing to go to rehab. having some right knee discomfort which is chronic. uses a cane at home History of Present Illness: Patient is a 59 year old male who presents to the ED with slurred speech and possible stroke vs TIA. His past medical history includes. bipolar disorder, epilepsy, asthma, and hypothyroidsim. Patient had ct head and it is unremarkable. brain mri negative. carotid doppler with small plaque, but negative otherwise. He denies any focal neurological symptoms. He does get intermittent dizziness at times. Resting tremors bilaterally. Patient seen by psyche and medications adjusted. Patient was for discharge to rehab, but discharge cancelled after patient became hypertensive. He was given one dose of hydralazine. Will start on low dose norvasc. His BP is stable and he is asymptomatic. - Current Medication List Current Medications: Active Medications Albuterol Sulfate (Ventolin Hfa Inhaler -) 2 puff IH Q6H PRN PRN Reason: WHEEZING Albuterol/Ipratropium (Duoneb -) 1 amp NEB Q6H PRN PRN Reason: SHORTNESS OF BREATH Amlodipine Besylate (Norvasc -) 5 mg PO DAILY [facility] Last Admin: 07/11/19 09:49 Dose: 5 mg Aspirin (Ecotrin -) 81 mg PO DAILY [facility] Last Admin: 07/11/19 09:49 Dose: 81 mg Atorvastatin Calcium (Lipitor -) 20 mg PO HS [facility] Last Admin: 07/10/19 21:47 Dose: 20 mg Bupropion HCl (Wellbutrin -) 100 mg PO DAILY [facility] Last Admin: 07/11/19 09:49 Dose: 100 mg Cholecalciferol (Vitamin D3 -) 2,000 unit PO DAILY [facility] Last Admin: 07/11/19 09:48 Dose: 2,000 unit Divalproex Sodium (Depakote *Er* -) 1,000 mg PO AM [facility] Last Admin: 07/11/19 06:26 Dose: 1,000 mg Fenofibric Acid (Trilipix -) 135 mg PO DAILY [facility] Last Admin: 07/11/19 09:48 Dose: 135 mg Levothyroxine Sodium (Synthroid -) 150 mcg PO DAILY@0700 [facility] Last Admin: 07/11/19 06:26 Dose: 150 mcg Lidocaine (Lidoderm Patch -) 1 patch TP ONCE [facility] Stop: 07/12/19 02:00 Last Admin: 07/11/19 15:25 Dose: 1 patch Miscellaneous (Lidoderm Patch Removal) 1 each MC DAILY@2200 [facility] Stop: 07/12/19 04:00 Fluticasone/Salmeterol (Advair 100mcg/50mcg -) 1 puff IH BID [facility] Last Admin: 07/11/19 15:23 Dose: 1 inhaler Tamsulosin HCl (Flomax -) 0.4 mg PO 829 [facility] Last Admin: 07/11/19 09:49 Dose: 0.4 mg - Objective Vital Signs: Vital Signs Temperature 97.8 F 07/11/19 13:31 Pulse Rate 80 07/11/19 13:31 Respiratory Rate 18 07/11/19 13:31 Blood Pressure 108/69 07/11/19 13:31 O2 Sat by Pulse Oximetry (%) 96 07/10/19 22:19 Constitutional: Yes: No Distress HENT: Yes: Atraumatic Neck: Yes: Supple Cardiovascular: Yes: Regular Rate and Rhythm Respiratory: Yes: Regular Gastrointestinal: Yes: Normal Bowel Sounds ...Rectal Exam: Yes: WNL Musculoskeletal: Yes: WNL Extremities: Yes: WNL Edema: No Integumentary: Yes: WNL Neurological: Yes: Alert, Oriented Labs: CBC, BMP 07/10/19 07:54 07/11/19 11:45 INR, PTT INR 1.08 (0.83-1.09) 07/06/19 02:00 Problem List - Problems (1) TIA (transient ischemic attack) Assessment/Plan: possible TIA. head ct negative and brain mri negative. carotid doppler with small plaque but otherwise negative. speech and swallow following. patient only ambulated 5 feet with PT. for rehab. on asa daily, statin therapy. Code(s): G45.9 - TRANSIENT CEREBRAL ISCHEMIC ATTACK, UNSPECIFIED (3) Hypothyroid Assessment/Plan: tsh/free t4 elevated. unsure if patient is taking home medications. he is a poor historian, however he states he is compliant. will increase to 150mcg. will need to have levels repeated as an outpatient. Code(s): E03.9 - HYPOTHYROIDISM, UNSPECIFIED (4) Seizure Assessment/Plan: Code(s): R56.9 - UNSPECIFIED CONVULSIONS (5) Bipolar 1 disorder Assessment/Plan: on depakote Code(s): F31.9 - BIPOLAR DISORDER, UNSPECIFIED (6) Hypertension Assessment/Plan: started on norvasc Code(s): I10 - ESSENTIAL (PRIMARY) HYPERTENSION (7) Prophylactic measure Assessment/Plan: fen chopped diet monitor electrolyes full code Code(s): Z29.9 - ENCOUNTER FOR PROPHYLACTIC MEASURES, UNSPECIFIED Visit type - Emergency Visit Emergency Visit: Yes ED Registration Date: 07/06/19 Care time: The patient presented to the Emergency Department on the above date and was hospitalized for further evaluation of their emergent condition. - New Patient This patient is new to me today: No - Critical Care Critical Care patient: No - Discharge Referral Referred to [facility] No
[2019-07-11] MEDS: ATORVASTATIN CA 20 MG TABLET (FP) PO SCH (21:07)
[2019-07-12] MEDS ORDERED: LIDOCAINE PATCH REMOVAL MC SCH (03:00)
[2019-07-12] MEDS ORDERED: PT OWN MED DRAWER 7, Y5N ONE ×2 (05:38→11:07)
[2019-07-12] MEDS: LEVOTHYROXINE NA 150 MCG TABLET PO SCH (06:00)
[2019-07-12] MEDS: DIVALPROEX NA *ER* EXTEND REL 500 MG TABLET.SA (FP) PO SCH (06:00)
--- NOTE | 2019-07-12 09:17 | PN ---
Progress Note (short form) - Note Progress Note: 59 year old male history of Bipolar disorder, Epilepsy, asthma, and Hypothyroidsim. Patient presented to ed with difficulty and slurring of speech. Patient had ct head and it is unremarkable. Patient symptoms seems to be resolved. Patient never had stroke before. He denies any focal neurological symptoms. He do get intermittent dizziness at times. his mri of brain is normal. He is ready to be discharged, and no new focal neurological symptoms NEUROLOGICAL EXAMINATION Alert oriented x 3, speech is normal, neck is supple, VSS eomi, pupils reactive no face asymmetry Moving all ext sensation is normal no resting tremors or dykinesia CT head unremarkable mri of brain is normal Assessment/Plan Transient confusion and slurring of speech ? tia symptoms resolved Plan: Continue apsirin and statin - continue supportive care -PT follow up outpatient Thanking you so much Eliud Cantrell MD
[2019-07-12] MEDS: FENOFIBRIC ACID 135 MG CAP PO SCH (11:09)
[2019-07-12] MEDS: CHOLECALCIFEROL (VIT D3) 1,000 UNIT (25 MCG) TABLET PO SCH (11:09)
[2019-07-12] MEDS: TAMSULOSIN HCL 0.4 MG CAP PO SCH (11:09)
[2019-07-12] MEDS: amLODIPine BESYLATE 5 MG TABLET (FP) PO SCH (11:09)
[2019-07-12] MEDS: ASPIRIN COATED 81 MG TABLET.EC PO SCH (11:10)
[2019-07-12] MEDS: buPROPion HCL 100 MG TABLET PO SCH (11:10)
[2019-07-12] MEDS: FLUTICASONE/SALMETEROL 100 MCG/50 MCG DISKUS IH SCH (11:11)
[2019-07-12] MEDS ORDERED: POLYETHYLENE GLYCOL 3350 119 GM BTL PO ONE (13:02)
[2019-07-12 13:29] VITALS: TEMP 98.5
[2019-07-12 14:44] VITALS: BP 136/78; PULSE 94
--- NOTE | 2019-07-12 14:50 | PN ---
Progress Note, Physician - Current Medication List Current Medications: Active Medications Albuterol Sulfate (Ventolin Hfa Inhaler -) 2 puff IH Q6H PRN PRN Reason: WHEEZING Albuterol/Ipratropium (Duoneb -) 1 amp NEB Q6H PRN PRN Reason: SHORTNESS OF BREATH Amlodipine Besylate (Norvasc -) 5 mg PO DAILY [facility] Last Admin: 07/12/19 11:09 Dose: 5 mg Aspirin (Ecotrin -) 81 mg PO DAILY [facility] Last Admin: 07/12/19 11:10 Dose: 81 mg Atorvastatin Calcium (Lipitor -) 20 mg PO HS [facility] Last Admin: 07/11/19 21:07 Dose: 20 mg Bupropion HCl (Wellbutrin -) 100 mg PO DAILY [facility] Last Admin: 07/12/19 11:10 Dose: 100 mg Cholecalciferol (Vitamin D3 -) 2,000 unit PO DAILY [facility] Last Admin: 07/12/19 11:09 Dose: 2,000 unit Divalproex Sodium (Depakote *Er* -) 1,000 mg PO AM [facility] Last Admin: 07/12/19 06:00 Dose: 1,000 mg Fenofibric Acid (Trilipix -) 135 mg PO DAILY [facility] Last Admin: 07/12/19 11:09 Dose: 135 mg Levothyroxine Sodium (Synthroid -) 150 mcg PO DAILY@0700 [facility] Last Admin: 07/12/19 06:00 Dose: 150 mcg Fluticasone/Salmeterol (Advair 100mcg/50mcg -) 1 puff IH BID [facility] Last Admin: 07/12/19 11:11 Dose: 1 inhaler Tamsulosin HCl (Flomax -) 0.4 mg PO 0830 [facility] Last Admin: 07/12/19 11:09 Dose: 0.4 mg - Objective Vital Signs: Vital Signs Temperature 98.5 F 07/12/19 14:42 Pulse Rate 94 H 07/12/19 14:42 Respiratory Rate 18 07/12/19 13:00 Blood Pressure 136/78 07/12/19 14:42 O2 Sat by Pulse Oximetry (%) 96 07/12/19 09:00 Labs: CBC, BMP 07/10/19 07:54 07/11/19 11:45 INR, PTT INR 1.08 (0.83-1.09) 07/06/19 02:00 Problem List - Problems (1) TIA (transient ischemic attack) Code(s): G45.9 - TRANSIENT CEREBRAL ISCHEMIC ATTACK, UNSPECIFIED (3) Hypothyroid Code(s): E03.9 - HYPOTHYROIDISM, UNSPECIFIED (4) Seizure Code(s): R56.9 - UNSPECIFIED CONVULSIONS (5) Bipolar 1 disorder Code(s): F31.9 - BIPOLAR DISORDER, UNSPECIFIED (6) Hypertension Code(s): I10 - ESSENTIAL (PRIMARY) HYPERTENSION (7) Prophylactic measure Code(s): Z29.9 - ENCOUNTER FOR PROPHYLACTIC MEASURES, UNSPECIFIED
== END 2019-07-12 16:16 | DRG 69 ==
LOC: JER 23:48 → JERBED 07-06 02:27 → J4S 07-07 → J6S 07-10 20:20
PROVIDERS: ADMIT Internal Medicine; ATTEND Nurse Practitioner Family
DX: G45.9 Transient cerebral ischemic attack, unspecified (principal); F31.9 Bipolar disorder, unspecified; J45.909 Unspecified asthma, uncomplicated; E03.9 Hypothyroidism, unspecified; G40.909 Epilepsy, unspecified, not intractable, without status epilepticus; R25.1 Tremor, unspecified
CPT/HCPCS: 36415; 70450-TC; 70551-TC; 80053; 80061; 80164; 80307; 81003; 82550; 82553; 83036; 83721; 83735; 84439; 84443; 84484; 85025; 85610; 86850; 86900; 86901; 87040; 87086; 93005; 93010; 93880-TC; 97116-GP; 97161-GP; 99285-25; G0480; J7030